=== PATIENT | female | born 1940 | race Caucasian/White ===

== ENCOUNTER 2016-06-01 11:55 | Inpatient (IN) | payer MEDICARE, OTHER ==
[2016-06-01] VITALS (11 sets, daily range): BP systolic 110–173; BP diastolic 59–89; PULSE 48–87; RESP 16–20; TEMP 97.3–98.4; O2SAT 95–98
[~2016-06-01] VITALS: Ht 172.7 cm; Wt 101.9 kg
[~2016-06-01 11:55] MED LIST: ATOR40TA49 PO; CALC-137 PO; CALC.25 PO; CO Q100C9 PO; DRIS8000 PO; FLEC50TA PO; IBUP800T23 PO; LEVO.125 PO; NORV5TAB PO; RAMI10CA PO; RIVA20 PO; VITA20003 PO
[2016-06-01] MEDS ORDERED: SODIUM CHLORIDE 0.9% FLUSH 5 ML FLUSH IVF PRN (12:30)
[2016-06-01 13:07] LABS: AUTOMATED NEUTROPHIL # 3.6 TH/MM3 (1.8-7.7); BASOPHIL % 0.8 % (0.0-2.0); EOSINOPHIL # 0.1 TH/MM3 (0-0.4); EOSINOPHIL % 1.6 % (0.0-4.0); HEMO FLAGS DIFF FINAL; LYMPH % 25.7 % (9.0-44.0); LYMPHOCYTE # 1.5 TH/MM3 (1.0-4.8); MEAN CELL VOLUME 91.3 FL (80.0-100.0); MEAN CORPUSCULAR HEMOGLOBIN 31.1 PG (27.0-34.0); MEAN CORPUSCULAR HGB CONC 34.1 % (32.0-36.0); MONO % 9.6 % (0.0-8.0); NEUT % 62.3 % (16.0-70.0); PLATELET COUNT 214 TH/MM3 (150-450); RED BLOOD COUNT 4.61 MIL/MM3 (4.00-5.30); RED CELL DISTRIBUTION WIDTH 13.3 % (11.6-17.2); WHITE BLOOD COUNT 5.8 TH/MM3 (4.0-11.0)
[2016-06-01] MEDS ORDERED: CO Q100C9 PO (13:10)
[2016-06-01] MEDS ORDERED: LIPI40TA PO (13:10)
[2016-06-01] MEDS ORDERED: RAMI10CA PO (13:10)
[2016-06-01] MEDS ORDERED: CALC.25 PO (13:10)
[2016-06-01] MEDS ORDERED: LEVO-168 PO (13:10)
[2016-06-01] MEDS ORDERED: VITA100032 PO (13:10)
[2016-06-01] MEDS ORDERED: FLEC1TAB8 PO (13:10)
[2016-06-01] MEDS ORDERED: CALC600T25 PO (13:10)
[2016-06-01] MEDS ORDERED: XARE20TA PO (13:10)
--- NOTE | 2016-06-01 13:10 | RADHPO ---
EXAM DATE/TIME: 06/01/2016 12:29 [place] COMPARISON: CT PULMONARY ANGIOGRAM, December 04, 2012, 22:31. CHEST SINGLE AP, December 04, 2012, 16:31. INDICATIONS : Weak, dizzy, heart palpitations. MEDICAL HISTORY: Hypertension. Deep venous thrombosis. Gastroesophageal reflux disease. Arthritis. TB. Diabetes. SURGICAL HISTORY: Appendectomy. Tonsillectomy. Total knee replacement, left. Thyroidectomy. ENCOUNTER: Initial ACUITY: 1 day PAIN SCORE: 0/10 LOCATION: chest FINDINGS: Heart remains enlarged. Consolidative changes persist in the left base. Right lung is clear. Pulmo nary vascularity is normal. CONCLUSION: Compared to 12/04/12 there is not a lot of change. There is cardiomegaly with consolidative changes i n the left base, stable in the interval. Valeriano Morillo MD FACR on June 01, 2016 at 13:06 Board Certified Radiologist. This report was verified electronically.
[2016-06-01 13:15] LABS: CHLORIDE 105 MEQ/L (98-107); POTASSIUM 4.1 MEQ/L (3.5-5.1); SODIUM (NA) 142 MEQ/L (136-145)
[2016-06-01 13:19] LABS: ANION GAP 11 MEQ/L (5-15); BICARBONATE 26.1 MEQ/L (21.0-32.0); BLOOD UREA NITROGEN 18 MG/DL (7-18)
[2016-06-01 13:21] LABS: APTT (PATIENT) 36.2 SEC (24.3-30.1); INTERNATIONAL NORMALIZED RATIO 1.1 RATIO; PROTHROMBIN TIME - PATIENT 12.3 SEC (9.8-11.6)
[2016-06-01 13:22] LABS: ALT (GPT) 24 U/L (10-53); AST (GOT) 14 U/L (15-37); GLOMERULAR FILTRATION RATE 44 ML/MIN (>89)
[2016-06-01 13:23] LABS: TOTAL BILIRUBIN ADULT 0.5 MG/DL (0.2-1.0)
[2016-06-01 13:25] LABS: ALKALINE PHOSPHATASE 185 U/L (45-117)
[2016-06-01 13:26] LABS: CREATINE KINASE 45 U/L (26-192)
--- NOTE | 2016-06-01 14:58 | PD ---
HPI Chief Complaint: General Weakness Time Seen by Provider: 12:48 Travel History International Travel<30 days: No Contact w/Intl Traveler<30days: No Traveled to known affect area: No History of Present Illness HPI 76-year-old female with history of sick sinus syndrome currently being followed by Dr. Gusman and on flecainide, diabetic, DVT and PE on Xarelto, presents to the ER today because she states that she has had a few days history of general weakness, lightheadedness, and feels like she is not quite right. She denies any chest pains, shortness of breath, fevers, vomiting, diarrhea, or any other symptoms. She states that her biomedical equipment technician had talked about possible need of pacers in the past but is currently trying flecainide on her. There has not been recent changes in dosing. Modifying Factors: None Associated Signs & Symptoms: General weakness, lightheadedness Risk Factors: Elderly, sick sinus syndrome history, slow heart rate PFSH Past Medical History Hx Anticoagulant Therapy: Yes (XARELTO) Arthritis: Yes Asthma: No Blood Disorders: No Heart Rhythm Problems: No Cardiovascular Problems: Yes (HTN; SICK SINUS SYNDROME) High Cholesterol: No Congestive Heart Failure: No COPD: No Cerebrovascular Accident: No Diabetes: Yes Patient Takes Glucophage: No Diminished Hearing: No Deep Vein Thrombosis: Yes (2002) Endocrine: Yes Gastrointestinal Disorders: No GERD: Yes Genitourinary: Yes (PT STATED USE OF 60% of kidneys) Headaches: No Hepatitis: No Hiatal Hernia: No Hypertension: Yes Immune Disorder: No Kidney Stones: No Musculoskeletal: Yes Neurologic: No Psychiatric: No Reproductive: No Respiratory: No Migraines: No Myocardial Infarction: No Renal Failure: No Seizures: No Sleep Apnea: No Thyroid Disease: Yes PNEUMOCCOCAL Vaccine (Year): 1 ?: Not Menopausal: Yes Para: 5 Past Surgical History Abdominal Surgery: No Appendectomy: Yes Cardiac Surgery: No Cholecystectomy: No Ear Surgery: No Endocrine Surgery: Yes (THYROIDECTOMY) Eye Surgery: No Genitourinary Surgery: Yes Gynecologic Surgery: Yes (CYST REMOVED) Joint Replacement: Yes (LEFT KNEE) Neurologic Surgery: No Oral Surgery: No Thoracic Surgery: No Tonsillectomy: Yes ( A CHILD) Social History Alcohol Use: Yes (1 GLASS OF WINE DAILY) Tobacco Use: No Substance Use: No Allergies-Medications (Allergen,Severity, Reaction): Coded Allergies: No Known Allergies (Verified , 06/01/16) Reported Meds & Prescriptions Reported Meds & Active Scripts Active Reported Vitamin D (Cholecalciferol) 1,000 Unit Cap 1 Tab PO DAILY Flecainide (Flecainide Acetate) 50 Mg Tab 50 Mg PO BID Co Q 10 (Coenzyme Q10 (Ubidecarenone)) 100 Mg Cap 1 Tab PO DAILY NEB Calcium (Calcium Carbonate) 600 Mg Tab 1 Tab PO BID Rocaltrol (Calcitriol) 0.25 Mcg Cap 0.25 Mcg PO DAILY Ramipril 10 Mg Cap 10 Mg PO DAILY Levothyroxine (Levothyroxine Sodium) 112 Mcg Tab 112 Mcg PO DAILY Xarelto (Rivaroxaban) 20 Mg Tab 20 Mg PO DAILY Lipitor (Atorvastatin Calcium) 40 Mg Tab 40 Mg PO HS Review of Systems Except as stated in HPI: all other systems reviewed are Neg Physical Exam Narrative GENERAL: Well-nourished, well-developed elderly white female patient in no acute distress. Awake and oriented 3. SKIN: Warm and dry. HEAD: Normocephalic. EYES: No scleral icterus. No injection or drainage. NECK: Supple, trachea midline. CARDIOVASCULAR: Slow and regular rhythm without murmurs, gallops, or rubs. RESPIRATORY: Breath sounds equal bilaterally. No accessory muscle use. GASTROINTESTINAL: Abdomen soft, non-tender, nondistended. MUSCULOSKELETAL: No cyanosis, or edema. BACK: Nontender without obvious deformity. No CVA tenderness. Data Data Last Documented VS Vital Signs Date Time Temp Pulse Resp B/P Pulse Ox O2 Delivery O2 Flow Rate FiO2 06/01/16 14:39 50 18 169/75 98 Room Air 06/01/16 12:00 97.3 Orders Complete Blood Count With Diff (06/01/16 12:24) Comprehensive Metabolic Panel (06/01/16 12:24) Magnesium (Mg) (06/01/16 12:24) Ckmb (Isoenzyme) Profile (06/01/16 12:24) Troponin I (06/01/16 12:24) Act Partial Throm Time (Ptt) (06/01/16 12:24) Prothrombin Time / Inr (Pt) (06/01/16 12:24) Chest, Single Ap (06/01/16 12:24) Ecg Monitoring (06/01/16 12:24) Iv Access Insert/Monitor (06/01/16 12:24) Oximetry (06/01/16 12:24) Sodium Chloride 0.9% Flush (Ns Flush) (06/01/16 12:30) Electrocardiogram (06/01/16 12:10) Labs Laboratory Tests Test 06/01/16 12:50 White Blood Count 5.8 TH/MM3 Red Blood Count 4.61 MIL/MM3 Hemoglobin 14.3 GM/DL Hematocrit 42.0 % Mean Corpuscular Volume 91.3 FL Mean Corpuscular Hemoglobin 31.1 PG Mean Corpuscular Hemoglobin 34.1 % Concent Red Cell Distribution Width 13.3 % Platelet Count 214 TH/MM3 Mean Platelet Volume 9.5 FL Neutrophils (%) (Auto) 62.3 % Lymphocytes (%) (Auto) 25.7 % Monocytes (%) (Auto) 9.6 % Eosinophils (%) (Auto) 1.6 % Basophils (%) (Auto) 0.8 % Neutrophils # (Auto) 3.6 TH/MM3 Lymphocytes # (Auto) 1.5 TH/MM3 Monocytes # (Auto) 0.6 TH/MM3 Eosinophils # (Auto) 0.1 TH/MM3 Basophils # (Auto) 0.0 TH/MM3 CBC Comment DIFF FINAL Differential Comment Prothrombin Time 12.3 SEC Prothromb Time International 1.1 RATIO Ratio Activated Partial 36.2 SEC Thromboplast Time Sodium Level 142 MEQ/L Potassium Level 4.1 MEQ/L Chloride Level 105 MEQ/L Carbon Dioxide Level 26.1 MEQ/L Anion Gap 11 MEQ/L Blood Urea Nitrogen 18 MG/DL Creatinine 1.20 MG/DL Estimat Glomerular Filtration 44 ML/MIN Rate Random Glucose 117 MG/DL Calcium Level 8.8 MG/DL Magnesium Level 2.0 MG/DL Total Bilirubin 0.5 MG/DL Aspartate Amino Transf 14 U/L (AST/SGOT) Alanine Aminotransferase 24 U/L (ALT/SGPT) Alkaline Phosphatase 185 U/L Total Creatine Kinase 45 U/L Troponin I LESS THAN 0.02 NG/ML Total Protein 6.4 GM/DL Albumin 3.2 GM/DL [facility] Medical Decision Making Medical Screen Exam Complete: Yes Emergency Medical Condition: Yes Medical Record Reviewed: Yes Interpretation(s) Sinus bradycardia at a rate of 47 bpm with a first-degree AV block and right bundle branch block. No signs of acute ST-T changes. Laboratory Tests Test 06/01/16 12:50 Monocytes (%) (Auto) 9.6 % (0.0-8.0) Prothrombin Time 12.3 SEC (9.8-11.6) Activated Partial 36.2 SEC Thromboplast Time (24.3-30.1) Creatinine 1.20 MG/DL (0.50-1.00) Estimat Glomerular Filtration 44 ML/MIN (>89) Rate Random Glucose 117 MG/DL (74-106) Aspartate Amino Transf 14 U/L (15-37) (AST/SGOT) Alkaline Phosphatase 185 U/L (45-117) Troponin I LESS THAN 0.02 NG/ML (0.02-0.05) Albumin 3.2 GM/DL (3.4-5.0) Differential Diagnosis Lightheadedness/general weaknessdehydration versus metabolic issues versus dysrhythmias Narrative Course Lab work did not indicate significant metabolic issues or cardiac enzyme elevations. EKG shows bradycardia in the 40s. At this point, case is discussed with Dr. Carlton was covering for patient's biomedical equipment technician, Dr. Ruibo and he would like the patient to be admitted to the main hospital for possible need of pacemaker. Case was then discussed with Dr. Kee for admission. Diagnosis Primary Impression: BRADYCARDIA, UNSPECIFIED Admitting Information Admitting Physician Requests: Admit Kelly Arias MD Jun 01, 2016 14:58
--- NOTE | 2016-06-01 16:05 | HHI.HP ---
cc: Lakeisha Butler MD [facility]ician Lakeisha Butler MD Admission Diagnosis symptomatic bradycardia Diagnoses: (1) Symptomatic bradycardia Diagnosis: Principal (2) HTN (hypertension) Diagnosis: Principal Chief Complaint: weak, dizzy Travel History International Travel<30 Days: No Contact w/Intl Traveler <30 Da: No Traveled to Known Affected Are: No History of Present Illness 76-year-old female with history of sick sinus syndrome, heart malrotation, hypertension, hyperlipidemia, DVTs and PEs on Xarelto, diet controlled diabetes, thyroid disease, and GERD presents with presyncopal symptoms. at bedside. The patient states that at 10 AM today she became extremely weak and dizzy and "woozy". She states she almost passed out but denies any actual syncope. She states she tested her blood sugar thinking it was low but was normal at 120. Sitting down made her feel better. Weakness was constant. She is somewhat improved now, admits to currently feeling chilled. Patient states she had a headache but it is gone now. She admits to chronic dyspnea on exertion but denies any shortness of breath or chest pain with symptoms today. Denies any visual changes. Denies any fevers or recent cold symptoms. Denies any abdominal pain, nausea, vomiting, or diarrhea. Denies any urinary symptoms. Review of Systems Constitutional: DENIES: Fever Eyes: DENIES: Blurred vision Ears, nose, mouth, throat: DENIES: Throat pain, Ear Pain Respiratory: DENIES: Cough, Shortness of breath Cardiovascular: COMPLAINS OF: Dyspnea on Exertion (chronic), DENIES: Chest pain Gastrointestinal: DENIES: Abdominal pain, Diarrhea, Nausea, Vomiting Genitourinary: DENIES: Urinary frequency, Dysuria Musculoskeletal: COMPLAINS OF: Neck pain (chronic ) Integumentary: DENIES: Rash Neurologic: COMPLAINS OF: Headache (now resolved), DENIES: Localized weakness ENT: chronic nasal congestion Past Family Social History Past Medical History Sick sinus syndrome Malrotation of the heart Hypertension Hyperlipidemia Diet-controlled diabetes Thyroid disease GERD Arthritis h/o DVTs and PEs, currently on Xarelto. EMR indicates patient had extensive bilateral pulmonary emboli in Nov 2012 with DVTs in the right leg at that time. She additionally had DVT in the right leg in Dec. Patient denies CKD although indicated by EMR, but admits to ELYSIA at one time from calcitriol which she is still taking Past Surgical History Tonsillectomy as a child Thyroidectomy Appendectomy Left knee replacement Bartholin's cyst removal Reported Medications Vitamin D (Cholecalciferol) 1,000 Unit Cap 1 Tab PO DAILY Flecainide (Flecainide Acetate) 50 Mg Tab 50 Mg PO BID Co Q 10 (Coenzyme Q10 (Ubidecarenone)) 100 Mg Cap 1 Tab PO DAILY NEB Calcium (Calcium Carbonate) 600 Mg Tab 1 Tab PO BID Rocaltrol (Calcitriol) 0.25 Mcg Cap 0.25 Mcg PO DAILY Ramipril 10 Mg Cap 10 Mg PO DAILY Levothyroxine (Levothyroxine Sodium) 112 Mcg Tab 112 Mcg PO DAILY Xarelto (Rivaroxaban) 20 Mg Tab 20 Mg PO DAILY Lipitor (Atorvastatin Calcium) 40 Mg Tab 40 Mg PO HS Allergies: Coded Allergies: No Known Allergies (Verified , 06/01/16) Family History Mother: Diabetic, multiple MIs with first one at age 75. at age 84. Father: Non-Hodgkin's lymphoma; at age 80. Sister: Non-Hodgkin's lymphoma; at age 75. Social History Drinks one glass of wine daily. Quit smoking cigarettes in 1968. Prior to this smoked 1/2 to 1 pack per day starting at age 16. Denies history of illicit drug use. Physical Exam Vital Signs Vital Signs Date Time Temp Pulse Resp B/P Pulse Ox O2 Delivery O2 Flow Rate FiO2 06/01/16 14:39 50 18 169/75 98 Room Air 06/01/16 13:24 48 18 169/73 98 Room Air 06/01/16 12:30 20 97 Room Air 06/01/16 12:00 97.3 62 16 173/81 95 Physical Exam GENERAL: This is a well-nourished, well-developed patient, in no apparent distress. SKIN: No rashes, ecchymoses or lesions. Warm and dry. HEAD: Atraumatic. Normocephalic. CARDIOVASCULAR: Bradycardic rate with regular rhythm without murmurs, gallops, or rubs. RESPIRATORY: Clear to auscultation. Breath sounds equal bilaterally. No wheezes , rales, or rhonchi. GASTROINTESTINAL: Abdomen soft, non-tender, nondistended. MUSCULOSKELETAL: Trace edema in the legs. BACK: No CVA tenderness bilaterally. NEUROLOGICAL: Awake and alert. Motor grossly within normal limits. Five out of 5 muscle strength in B/L arms and legs. Normal speech. PSYCHIATRIC: Normal mood and affect. Normal insight and judgement. Laboratory Laboratory Tests Test 06/01/16 12:50 White Blood Count 5.8 Red Blood Count 4.61 Hemoglobin 14.3 Hematocrit 42.0 Mean Corpuscular Volume 91.3 Mean Corpuscular Hemoglobin 31.1 Mean Corpuscular Hemoglobin 34.1 Concent Red Cell Distribution Width 13.3 Platelet Count 214 Mean Platelet Volume 9.5 Neutrophils (%) (Auto) 62.3 Lymphocytes (%) (Auto) 25.7 Monocytes (%) (Auto) 9.6 Eosinophils (%) (Auto) 1.6 Basophils (%) (Auto) 0.8 Neutrophils # (Auto) 3.6 Lymphocytes # (Auto) 1.5 Monocytes # (Auto) 0.6 Eosinophils # (Auto) 0.1 Basophils # (Auto) 0.0 CBC Comment DIFF FINAL Differential Comment Prothrombin Time 12.3 Prothromb Time International 1.1 Ratio Activated Partial 36.2 Thromboplast Time Sodium Level 142 Potassium Level 4.1 Chloride Level 105 Carbon Dioxide Level 26.1 Anion Gap 11 Blood Urea Nitrogen 18 Creatinine 1.20 Estimat Glomerular Filtration 44 Rate Random Glucose 117 Calcium Level 8.8 Magnesium Level 2.0 Total Bilirubin 0.5 Aspartate Amino Transf 14 (AST/SGOT) Alanine Aminotransferase 24 (ALT/SGPT) Alkaline Phosphatase 185 Total Creatine Kinase 45 Troponin I LESS THAN 0.02 Total Protein 6.4 Albumin 3.2 Result Diagram: 06/01/16 1250 06/01/16 1250 Assessment and Plan Assessment and Plan 76-year-old female with: Symptomatic bradycardia: Patient with sick sinus syndrome, presyncopal symptoms today. Heart rate 48 on exam. -ED physician spoke with Dr. Carlton, supervisor cigar processing covering for patient's supervisor cigar processing Dr. Crawford; requested admission to [facility] for pacemaker placement. -NPO after midnight (Can continue Flecainide) HTN: BP 173/81 on arrival. -Continue home Ramipril -IV hydralazine prn as directed for SBP >180 or DBP >100 HLD: Continue statin Diabetes: Glucose 117. Diet controlled currently; history of Metformin use. Patient states her last hemoglobin A1c was 5.8 approximately 4 months ago. -Bedside glucose checks -Low dose SSI. Hold SSI if patient NPO and BGL < 200. Thyroid disease: Continue home medications. CKD Stage 3: Cr 1.2, at baseline. -Monitor BMP -Avoid nephrotoxins h/o multiple DVT/PE: Currently on Xarelto, but will hold in light of impending procedure. Start patient on heparin 5000 units sq q8h. Code Status FULL CODE. Discussed Condition With Dr. Kee, patient and her Attending Statement The exam, history, and the medical decision-making described in the above note were completed with the assistance of the mid-level provider. I reviewed and agree with the findings presented. I attest that I had a [id number] encounter with the patient on the same day, and personally performed and documented my assessment and findings in the medical record. Patient seen in room hr in the 50 Transfer discussed with patient, spouse D/w er Brittaney Chan Jun 01, 2016 16:05 Colleen Kee MD Jun 01, 2016 17:01
[2016-06-01] MEDS ORDERED: NALOXONE HCL 0.4 MG/ML AMP IV PRN (16:15)
[2016-06-01] MEDS ORDERED: GLUCAGON 1 MG/ML VIAL OTHER PRN (16:15)
[2016-06-01] MEDS ORDERED: SODIUM CHLORIDE 0.9% FLUSH 5 ML FLUSH FLUSH PRN (16:15)
[2016-06-01] MEDS ORDERED: DEXTROSE 50% IN WATER 50 ML VIAL(D50) IV PUSH PRN (16:15)
[2016-06-01] MEDS ORDERED: PILL SPLITTER OTHER PRN (16:30)
[2016-06-01] MEDS ORDERED: hydrALAZINE HCL 20 MG/ML VIAL IV PUSH PRN (16:45)
[2016-06-01] MEDS: HEPARIN SODIUM - SQ 10,000 UNITS/ML VIAL SQ SCH (16:53)
[2016-06-01] MEDS: INSULIN ASPART SUPPLEMENTAL SCALE SQ SCH (21:00)
[2016-06-01] MEDS ORDERED: ATORVASTATIN 40 MG TAB PO SCH (21:00)
[2016-06-01] MEDS: CALCIUM CARBONATE 1.25 GM (CA 500 MG) TAB PO SCH (21:31)
[2016-06-01] MEDS: SODIUM CHLORIDE 0.9% FLUSH 5 ML FLUSH FLUSH SCH (21:32)
[2016-06-01] MEDS: FLECAINIDE ACETATE 100 MG TAB PO SCH (21:42)
[2016-06-02] VITALS (18 sets, daily range): BP systolic 123–150; BP diastolic 65–82; PULSE 38–77; RESP 14–18; TEMP 97.5–97.9; O2SAT 94–97
[2016-06-02] MEDS: HEPARIN SODIUM - SQ 10,000 UNITS/ML VIAL SQ SCH ×2 (01:27→09:49)
[2016-06-02] MEDS ORDERED: LEVOTHYROXINE SODIUM 112 MCG TAB PO SCH (06:00)
[2016-06-02] MEDS: INSULIN ASPART SUPPLEMENTAL SCALE SQ SCH ×2 (06:09→11:00)
[2016-06-02] MEDS ORDERED: CHOLECALCIFEROL (VIT D3) 1000 UNIT TAB PO SCH (09:00)
[2016-06-02] MEDS ORDERED: RAMIPRIL 5 MG CAP PO SCH (09:00)
[2016-06-02] MEDS ORDERED: CALCITRIOL 0.25 MCG CAP PO SCH (09:00)
[2016-06-02] MEDS: SODIUM CHLORIDE 0.9% FLUSH 5 ML FLUSH FLUSH SCH (09:48)
[2016-06-02] MEDS: FLECAINIDE ACETATE 100 MG TAB PO SCH (09:49)
[2016-06-02] MEDS: CALCIUM CARBONATE 1.25 GM (CA 500 MG) TAB PO SCH (09:49)
--- NOTE | 2016-06-02 09:58 | HHI.PR ---
Subjective Remarks Follow-up symptomatically bradycardia, hypertension, diabetes. The patient has no complaints at this time. She is not lightheaded or dizzy. No chest pain or dyspnea. She states that she ambulated to the bathroom earlier today without lightheadedness. Objective Vitals Vital Signs Date Time Temp Pulse Resp B/P Pulse Ox O2 Delivery O2 Flow Rate FiO2 06/02/16 06:00 62 06/02/16 05:00 44 06/02/16 04:24 97.9 57 16 123/65 94 06/02/16 04:00 41 06/02/16 03:00 58 06/02/16 02:54 38 06/02/16 02:00 46 06/02/16 01:00 97.5 61 14 130/74 94 06/02/16 01:00 64 06/02/16 00:00 48 06/01/16 23:00 48 06/01/16 22:00 64 06/01/16 21:00 48 06/01/16 20:40 48 06/01/16 20:15 98.4 87 18 110/86 96 06/01/16 18:51 51 18 124/59 97 Room Air 06/01/16 16:14 50 18 168/89 97 Room Air 06/01/16 14:39 50 18 169/75 98 Room Air 06/01/16 13:24 48 18 169/73 98 Room Air 06/01/16 12:30 20 97 Room Air 06/01/16 12:00 97.3 62 16 173/81 95 I/O 06/01/16 06/01/16 06/01/16 06/02/16 06/02/16 06/02/16 07:00 15:00 23:00 07:00 15:00 23:00 Intake Total 240 ml Balance 240 ml Intake Oral 240 ml IV Total 0 ml # Voids 1 # Bowel Movements 0 Result Diagram: 06/01/16 1250 06/01/16 1250 Imaging Last Impressions Chest X-Ray 06/01/16 1224 Signed Impressions: Service Date/Time: Wednesday, June 01, 2016 12:29 - CONCLUSION: Compared to 12/04/12 there is not a lot of change. There is cardiomegaly with consolidative changes in the left base, stable in the interval. Valeriano Morillo MD FACR Objective Remarks General: No acute distress. Heart: Bradycardic. No murmur. Lungs: Clear to auscultation bilaterally. No wheezes, rales, or rhonchi. Breathing is nonlabored. Abdomen: Soft, nontender, nondistended. Extremities: No lower extremity edema. Psych: Alert and oriented. Urinary Catheter: No Vascular Central Line Catheter: No A/P Problem List: (1) Symptomatic bradycardia ICD Code: R00.1 Status: Acute (2) HTN (hypertension) ICD Code: I10 Status: Chronic (3) Diabetes mellitus ICD Code: E11.9 Status: Chronic (4) Hyperlipidemia ICD Code: E78.5 Status: Chronic (5) Hypothyroidism ICD Code: E03.9 Status: Chronic (6) Chronic kidney disease, stage 3 ICD Code: N18.3 Status: Chronic (7) History of pulmonary embolus (PE) ICD Code: Z86.711 Status: Chronic Assessment and Plan 1. Symptomatic bradycardia: A shunt presented with sick sinus syndrome and presyncopal symptoms. Cardiology consultation is pending. Patient was transferred to [facility] for pacemaker placement. Continue flecainide. 2. Hypertension: Continue Avapro. Hydralazine as needed. 3. Hyperlipidemia: Continue statin. 4. Diabetes mellitus type 2: Currently diet controlled. Monitor Accu-Cheks and cover with sliding scale insulin. 5. Hypothyroidism: Continue Synthroid. 6. Chronic kidney disease stage III: Monitor labs. Avoid nephrotoxins. 7. History of DVT, PE: Patient is on Xarelto chronically. Hold Xarelto in anticipation of pacemaker placement. Continue heparin. 8. CODE STATUS: Full code. Problem Qualifiers (1) Diabetes mellitus: Qualified Code: E11.22 - Type 2 diabetes mellitus with stage 3 chronic kidney disease, without long-term current use of insulin Franco Brian MD Jun 02, 2016 09:58
[2016-06-02] MEDS ORDERED: PNEUMOCOCCAL POLYVALENT INJ 25 MCG/0.5 ML SYR IM ONE (10:00)
--- NOTE | 2016-06-02 13:40 | EKG ---
Date Performed: 06/01/2016 Time Performed: 12:10:52 PTAGE: 76 years EKG: Sinus bradycardia with 1st degree A-V block Severe right axis deviation Right bundle branch block Lateral infarct - age undetermined Possible anteroseptal infarct - age undetermined Inferior T wave changes may be due to myocardial ischemia Low QRS voltages in precordial leads Abnormal ECG PREVIOUS TRACING : 12/03/2012 05.32 Compared to previous tracing, marked bradycardia is new. Castillo spect limb lead reveral with repeat EKG. DOCTOR: Jr Mckay Interpretating Date/Time 06/02/2016 13:39:24
--- NOTE | 2016-06-02 14:33 | HHI.DCPOC ---
Discharge Care Plan Diagnosis: (1) History of pulmonary embolus (PE) (2) Chronic kidney disease, stage 3 (3) Hypothyroidism (4) Hyperlipidemia (5) Diabetes mellitus (6) HTN (hypertension) (7) Symptomatic bradycardia Goals to Promote Your Health * To prevent worsening of your condition and complications * To maintain your health at the optimal level Directions to Meet Your Goals Take your medications as prescribed Follow your dietary instruction Follow activity as directed Keep your appointments as scheduled Take your immunizations and boosters as scheduled If your symptoms worsen call your PCP, if no PCP go to Urgent Care Center or Emergency Room Smoking is Dangerous to Your Health. Avoid second hand smoke Call the 24-hour hour crisis hotline for domestic abuse at Franco Brian MD Jun 02, 2016 14:33
--- NOTE | 2016-06-02 15:05 | MB ---
cc: SELENE NELSON M.D., SANDRA L. M.D. LOPEZ, MARIA I. M.D. DATE OF CONSULTATION: 06/02/2016 REASON FOR CONSULTATION: Bradycardia. HISTORY OF PRESENT ILLNESS The patient is a 76-year-old white female with history of sick sinus syndrome who presented yesterday with for a syncopal episode and found to be in significant sinus bradycardia. She was been treated for her sick sinus syndrome with flecainide which was stopped yesterday. The patient has no symptoms today and heart rate is up to 60. She he does have chronic shortness of breath due to history of pulmonary embolisms in the past but denies any other cardiac symptoms like chest pain or palpitations. PAST MEDICAL HISTORY 1. Sick sinus syndrome 2. Hypertension. 3. Hyperlipidemia 4. Diet-controlled diabetes 5. Thyroid disease 6. Gastroesophageal reflux disease 7. Arthritis 8. History of deep venous thrombosis and pulmonary embolisms. Currently on Xarelto. PAST SURGICAL HISTORY 1. Tonsillectomy 2. Thyroidectomy 3. Appendectomy 4. Left knee replacement 5. Bartholin cyst removal. ALLERGIES She has no known allergies. FAMILY HISTORY Mother at age 84 and had diabetes and multiple heart attacks father at age 80 with non-Hodgkin's lymphoma. SOCIAL HISTORY She drinks one glass of wine per day. Quit smoking in 1968. MEDICATIONS Current medications include 1. Calcitriol 0.5 mg daily. 2. Ramipril 10 mg daily, 3. Vitamin B1 1000 units daily. 4. We will thyroxin 112 mcg daily. 5. Atorvastatin 40 mg daily 6. Subcutaneous Heparin 5000 units every 8 hours 7. ALIS inhibitor. 8. Flecainide PHYSICAL EXAMINATION: IN GENERAL: The patient is in no acute distress. VITAL SIGNS: Blood pressure is 130/70 millimeters of mercury, heart rate 60 beats per minute sinus rhythm. HEAD/NECK: with no JVD or carotid bruits. Normal carotid upstrokes. LUNGS: Clear to auscultation. HEART: Normal S1-S2 without murmurs or gallops. ABDOMEN: Benign without visceromegaly or bruits. EXTREMITIES: Without edema. NEUROLOGIC: With no focal deficits. DATA: Electrocardiogram shows sinus bradycardia with first-degree AV block with a heart rate of 47 beats per minute. Right axis deviation, old lateral and anteroseptal myocardial infarctions Chest x-ray showed cardiomegaly with left base consolidation which is unchanged as compared to a chest x-ray 2013. CBC, PT and INR were within normal limits. BMP was remarkable for a glucose of 117, creatinine 1.2 and a GFR of 44. ASSESSMENT 1. A 76-year-old white female with sick sinus syndrome status post symptomatic sinus bradycardia which is already resolved after discontinuation of flecainide. Heart rate is back in the 60s. The patient is asymptomatic RECOMMENDATIONS: We will send the patient home post ambulation. She is to follow up with Dr. Nelson next week as she may need a Pacemaker in the near future. MD AQUILES Renae/ani /12:48 PM /2:47 PM MTDXin
== END 2016-06-02 15:24 | disposition home or self-care (01) | DRG 310 ==
LOC: PHED 11:55 → PHEDA 15:42 → HCIS 19:35
PROVIDERS: ADMIT Family Medicine; ATTEND Family Medicine
DX: I49.5 Sick sinus syndrome (principal); N18.3 Chronic kidney disease, stage 3 (moderate); I45.10 Unspecified right bundle-branch block; I12.9 Hypertensive chronic kidney disease with stage 1 through stage 4 chronic kidney disease, or unspecified chronic kidney disease; M19.90 Unspecified osteoarthritis, unspecified site; K21.9 Gastro-esophageal reflux disease without esophagitis; E89.0 Postprocedural hypothyroidism; I44.0 Atrioventricular block, first degree; E78.5 Hyperlipidemia, unspecified; Z79.01 Long term (current) use of anticoagulants; Z86.711 Personal history of pulmonary embolism; Z86.718 Personal history of other venous thrombosis and embolism; Z87.891 Personal history of nicotine dependence; Z96.652 Presence of left artificial knee joint
CPT/HCPCS: 71010; 80053; 82550; 82948; 83735; 84484; 85025; 85610; 85730; 93005; J1644

== ENCOUNTER → 2016-07-24 | Outpatient (CLI) | payer MEDICARE, OTHER ==
[~2016-07-24] MED LIST changes: -ATOR40TA49 PO; +AZIT500T2 PO; -CALC-137 PO; +CALC600T25 PO; +CEFU1TAB20 PO; -DRIS8000 PO; -FLEC50TA PO; +HYDR1ELX PO; +HYDR1SOL3 PO; -IBUP800T23 PO; +LEVO-168 PO; -LEVO.125 PO; +LEVO112T2 PO; +LIPI40TA PO; +MEDR4PAK PO; -NORV5TAB PO; -RIVA20 PO; +VITA100032 PO; -VITA20003 PO; +XARE20TA PO; +ZITHTAB PO
[2016-07-24 09:38] LABS: AUTOMATED NEUTROPHIL # 3.2 TH/MM3 (1.8-7.7); BASOPHIL % 0.8 % (0.0-2.0); EOSINOPHIL # 0.1 TH/MM3 (0-0.4); EOSINOPHIL % 1.8 % (0.0-4.0); HEMATOCRIT 44.1 % (35.0-46.0); HEMO FLAGS DIFF FINAL; LYMPH % 33.7 % (9.0-44.0); MEAN CELL VOLUME 90.7 FL (80.0-100.0); MEAN CORPUSCULAR HGB CONC 34.2 % (32.0-36.0); MONO % 9.4 % (0.0-8.0); NEUT % 54.3 % (16.0-70.0); PLATELET COUNT 220 TH/MM3 (150-450); RED BLOOD COUNT 4.87 MIL/MM3 (4.00-5.30); RED CELL DISTRIBUTION WIDTH 14.2 % (11.6-17.2); WHITE BLOOD COUNT 5.9 TH/MM3 (4.0-11.0)
[2016-07-24 10:04] LABS: ALKALINE PHOSPHATASE 159 U/L (45-117); ALT (GPT) 32 U/L (10-53); ANION GAP 8 MEQ/L (5-15); AST (GOT) 19 U/L (15-37); BICARBONATE 27.6 MEQ/L (21.0-32.0); BLOOD UREA NITROGEN 24 MG/DL (7-18); CHLORIDE 104 MEQ/L (98-107); GLOMERULAR FILTRATION RATE 42 ML/MIN (>89); GLUCOSE,FASTING 133 MG/DL (74-99); HDL CHOLESTEROL 60.8 MG/DL (40.0-60.0); LDL CHOLESTEROL 51 MG/DL (0-99); POTASSIUM 4.6 MEQ/L (3.5-5.1); SODIUM (NA) 140 MEQ/L (136-145); TOTAL BILIRUBIN ADULT 0.6 MG/DL (0.2-1.0)
[2016-07-24 16:06] LABS: HEMOGLOBIN A1b 1.7 %; HEMOGLOBIN Ao 84.5 %; HEMOGLOBIN LA1C 2.2 %; HEMOGLOBIN P3 4.1 %
== END ==
LOC: PLAB 07:05
PROVIDERS: ATTEND Family Medicine
DX: I12.9 Hypertensive chronic kidney disease with stage 1 through stage 4 chronic kidney disease, or unspecified chronic kidney disease (principal); N18.3 Chronic kidney disease, stage 3 (moderate); E11.22 Type 2 diabetes mellitus with diabetic chronic kidney disease; E78.5 Hyperlipidemia, unspecified; E03.9 Hypothyroidism, unspecified
CPT/HCPCS: 36415; 80053; 80061; 83036; 84443; 85025

== ENCOUNTER 2016-08-04 06:11 | Emergency (ER) | payer MEDICARE, OTHER ==
[~2016-08-04] VITALS: Ht 172.7 cm; Wt 100.0 kg
[~2016-08-04 06:11] MED LIST changes: -AZIT500T2 PO; -CEFU1TAB20 PO; -HYDR1ELX PO; -HYDR1SOL3 PO; -LEVO112T2 PO; -MEDR4PAK PO; -ZITHTAB PO
[2016-08-04 06:17] VITALS: BP 142/75; PULSE 68; RESP 18; TEMP 98.1; O2SAT 94
[2016-08-04] MEDS ORDERED: LEVO112T2 PO (06:26)
--- NOTE | 2016-08-04 06:52 | PD ---
HPI Chief Complaint: Cold / Flu Symptoms Time Seen by Provider: 06:41 Travel History International Travel<30 days: No Contact w/Intl Traveler<30days: No Traveled to known affect area: No History of Present Illness HPI 76 year old female presents to the emergency department by private transportation the care of her spouse for complaint of sore throat, hoarseness, and chest congestion. Patient has history of sick sinus syndrome, HTN, hypothyroidism and diabetes. Patient is prescribed Xarelto. Patient has not checked to see if she is had fever. Patient has had cough and congestion but no phlegm production. Patient does not report chest pain or shortness of breath. Patient rates her throat pain as 10 over 10 in intensity with swallowing. No sinus pressure or drainage, no earache, no neck pain, no nausea , no vomiting, no abdominal pain, no flank pain, no dysuria, no joint pain or swelling. Patient has used Aditi-[place] with minimal relief. PFSH Past Medical History Narrative Medical sick sinus syndrome, DVT, hypertension, diabetes, hypothyroidism, appendectomy and orthopedic surgery; no tobacco use; nursing notes reviewed Hx Anticoagulant Therapy: Yes (XARELTO) Arthritis: Yes Asthma: No Blood Disorders: No Heart Rhythm Problems: No Cardiovascular Problems: Yes (HTN; SICK SINUS SYNDROME) High Cholesterol: No Congestive Heart Failure: No COPD: No Cerebrovascular Accident: No Diabetes: Yes Patient Takes Glucophage: No Diminished Hearing: No Deep Vein Thrombosis: Yes (2002) Endocrine: Yes Gastrointestinal Disorders: No GERD: Yes Genitourinary: Yes (PT STATED USE OF 60% of kidneys) Headaches: No Hepatitis: No Hiatal Hernia: No Hypertension: Yes Immune Disorder: No Kidney Stones: No Musculoskeletal: Yes Neurologic: No Psychiatric: No Reproductive: No Respiratory: No Migraines: No Myocardial Infarction: No Renal Failure: No Seizures: No Sleep Apnea: No Thyroid Disease: Yes Tetanus Vaccination: Unknown Influenza Vaccination: Yes PNEUMOCCOCAL Vaccine (Year): 1 Menopausal: Yes Para: 5 Past Surgical History Abdominal Surgery: No Appendectomy: Yes Cardiac Surgery: No Cholecystectomy: No Ear Surgery: No Endocrine Surgery: Yes (THYROIDECTOMY) Eye Surgery: No Genitourinary Surgery: Yes Gynecologic Surgery: Yes (CYST REMOVED) Joint Replacement: Yes (LEFT KNEE) Neurologic Surgery: No Oral Surgery: No Thoracic Surgery: No Tonsillectomy: Yes ( A CHILD) Social History Alcohol Use: Yes (1 GLASS OF WINE DAILY) Tobacco Use: No Substance Use: No Allergies-Medications (Allergen,Severity, Reaction): Coded Allergies: No Known Allergies (Verified , 08/04/16) Reported Meds & Prescriptions Reported Meds & Active Scripts Active Reported Levothyroxine (Levothyroxine Sodium) 112 Mcg Tab 112 Mcg PO DAILY EXCEPT WED. Vitamin D (Cholecalciferol) 1,000 Unit Cap 1 Tab PO DAILY Co Q 10 (Coenzyme Q10 (Ubidecarenone)) 100 Mg Cap 1 Tab PO DAILY NEB Calcium (Calcium Carbonate) 600 Mg Tab 1 Tab PO BID Rocaltrol (Calcitriol) 0.25 Mcg Cap 0.25 Mcg PO DAILY Ramipril 10 Mg Cap 10 Mg PO DAILY Xarelto (Rivaroxaban) 20 Mg Tab 20 Mg PO DAILY Lipitor (Atorvastatin Calcium) 40 Mg Tab 40 Mg PO HS Review of Systems Except as stated in HPI: all other systems reviewed are Neg General / Constitutional: No: Fever, Chills HENT: Positive: Sore Throat, Congestion, No: Neck Stiffness, Neck Pain, Earache Cardiovascular: No: Chest Pain or Discomfort, Palpitations Respiratory: Positive: Cough, No: Shortness of Breath, Wheezing Gastrointestinal: No: Nausea, Vomiting, Abdominal Pain Genitourinary: No: Dysuria, Flank Pain Musculoskeletal: No: Myalgias, Arthralgias Skin: No Rash Neurologic: No: Weakness, Dizziness, Syncope Psychiatric: No: Anxiety Endocrine: No: Heat Intolerance Hematologic/Lymphatic: No: Easy Bruising Physical Exam Narrative GENERAL: Well-developed well-nourished female in no acute distress no respiratory distress with hoarseness. SKIN: Warm and dry. HEAD: Normocephalic. EYES: No scleral icterus. No injection or drainage. ENT: Mucous membranes moist posterior pharynx no edema no erythema no exudative change; airway is patent. Tympanic membranes no redness no dullness to loss of landmarks no perforation NECK: Supple, trachea midline. No JVD or lymphadenopathy. No meningismus no nuchal rigidity CARDIOVASCULAR: Regular rate and rhythm without murmurs, gallops, or rubs. RESPIRATORY: Breath sounds equal bilaterally. No accessory muscle use. GASTROINTESTINAL: Abdomen soft, non-tender, nondistended. MUSCULOSKELETAL: No cyanosis, or edema. Radial and dorsalis pedis pulses 2+ to palpation bilaterally. BACK: Nontender without obvious deformity. No CVA tenderness. Data Data Last Documented VS Vital Signs Date Time Temp Pulse Resp B/P Pulse Ox O2 Delivery O2 Flow Rate FiO2 08/04/16 06:29 18 94 Room Air 08/04/16 06:17 98.1 68 142/75 Orders Chest, Single Ap (08/04/16 ) ^ Saline Lock (08/04/16 06:57) Ceftriaxone Inj (Rocephin Inj) (08/04/16 07:00) Azithromycin (Zithromax) (08/04/16 07:00) Methylprednisolone So Succ Inj (Solumedr (08/04/16 07:00) Blood Culture (08/04/16 06:57) MDM Medical Decision Making Medical Screen Exam Complete: Yes Emergency Medical Condition: Yes Medical Record Reviewed: Yes Interpretation(s) Last Impressions Chest X-Ray 08/04/16 0000 Signed Impressions: Service Date/Time: Saturday, August 04, 2016 06:45 - CONCLUSION: 1. Cardiomegaly 2. Left lower lobe atelectasis versus pneumonia. Boni Garcia MD Vital Signs Date Time Temp Pulse Resp B/P Pulse Ox O2 Delivery O2 Flow Rate FiO2 08/04/16 06:29 18 94 Room Air 08/04/16 06:17 98.1 68 18 142/75 94 Differential Diagnosis Laryngitis, pharyngitis, pneumonia; no findings for peritonsillar abscess also consider retropharyngeal abscess Narrative Course cxr ordered Chest x-ray shows left lower lobe atelectasis versus infiltrate; blood culture obtained IV Rocephin administered along with IV Solu-Medrol; heart rate respiratory rate found to be in normal range no work of breathing denies any shortness of breath room air O2 saturation 95-96% although triage shows initial room air saturation 94%; also given one-time dose of hydrocodone for complaint of throat pain. Patient is on Xarelto not a candidate for nonsteroidal anti- inflammatory pain management. Patient is aware of x-ray results and desirous of being discharged to home while attempt trial of outpatient management. Diagnosis Primary Impression: Pneumonia Qualified Code: J18.1 - Pneumonia of left lower lobe due to infectious organism Additional Impression: Laryngitis, acute Referrals: Primary Care Physician 2 days Patient Instructions: General Instructions Additional Instructions: Increase fluid hydration Follow-up with primary care provider Take Tylenol/acetaminophen every 4 hours as needed for fever 100.4F or greater or for minor pain Return to the emergency department for any concerns or change in condition Take medications as currently prescribed Use [id number] Chloraseptic spray, lozenges, warm salt gargles for symptomatic relief Med/Other Pt SpecificInfo: Prescription(s) given Scripts Hydrocodone-Acetaminophen Liq (Lortab Liq)10-300 Mg/15 Ml Elix5-10 Ml PO Q6H PRN (PAIN) #60 ML Ref 0 Prov:Lorraine Aguilar MD 08/04/16 Azithromycin (Zithromax Z-Delio)250 Mg [id number] Mg PO DIRECTED #1 DSPK Ref 0 500 MG (2 tabs) day 1, then 1 tab days 2-5. Prov:Lorraine Aguilar MD 08/04/16 Methylprednisolone Dosepak (Medrol Dosepak)4 Mg Dspk4 Mg PO DIRECTED #1 DSPK Ref 0 Per Pharmacist direction Prov:Lorraine Aguilar MD 08/04/16 Disposition: 01 DISCHARGE HOME Condition: Stable Lorraine Aguilar MD Aug 04, 2016 06:52
--- NOTE | 2016-08-04 06:55 | RADHPO ---
EXAM DATE/TIME: 08/04/2016 06:45 [facility] COMPARISON: CHEST SINGLE AP, June 01, 2016, 12:29. INDICATIONS : Cough. MEDICAL HISTORY : Hypertension. Deep venous thrombosis. Gastroesophageal reflux disease. Arthritis. TB. Diabetes SURGICAL HISTORY : Appendectomy. Tonsillectomy. Total knee replacement, left. Thyroidectomy. ENCOUNTER: Initial ACUITY: 2 days PAIN SCORE: 7/10 LOCATION: Bilateral chest FINDINGS: The cardiac silhouette is enlarged in transverse diameter. There is left lower lobe atelectasis versu s pneumonia. The right lung is free of acute parenchymal opacity. No pleural effusions are identified . CONCLUSION: 1. Cardiomegaly 2. Left lower lobe atelectasis versus pneumonia. Boni Garcia MD on August 04, 2016 at 6:53 Board Certified Radiologist. This report was verified electronically.
[2016-08-04] MEDS ORDERED: cefTRIAXone INJ 1,000 MG in SODIUM CHLORIDE 0.9% INJ 100 ML IV ONE (07:00)
[2016-08-04] MEDS ORDERED: methylPREDNISolone SOD SUCC 125 MG/2 ML VIAL IV PUSH ONE (07:00)
[2016-08-04] MEDS ORDERED: AZITHROMYCIN 250 MG TAB PO ONE (07:00)
[2016-08-04] MEDS ORDERED: MEDR4PAK PO (07:05)
[2016-08-04] MEDS ORDERED: ZITHTAB PO (07:05)
[2016-08-04] MEDS ORDERED: HYDR1ELX PO (07:05)
[2016-08-04] MEDS ORDERED: ACETAMINOPHEN 325MG/HYDROcodone 7.5MG/15ML UDC PO ONE (07:15)
[2016-08-04 07:37] VITALS: PULSE 64; RESP 16; O2SAT 96
[2016-08-04] MEDS ORDERED: HYDR1SOL3 PO (10:16)
--- NOTE | 2016-08-04 10:16 | PD ---
Data Data Last Documented VS Vital Signs Date Time Temp Pulse Resp B/P Pulse Ox O2 Delivery O2 Flow Rate FiO2 08/04/16 07:37 64 16 96 Room Air 08/04/16 06:17 98.1 142/75 Orders Chest, Single Ap (08/04/16 ) ^ Saline Lock (08/04/16 06:57) Ceftriaxone Inj (Rocephin Inj) (08/04/16 07:00) Azithromycin (Zithromax) (08/04/16 07:00) Methylprednisolone So Succ Inj (Solumedr (08/04/16 07:00) Blood Culture (08/04/16 06:57) Acetamin-Hydrocod 325-7.5 Liq (Hycet 325 (08/04/16 07:15) MDM Supervised Visit with KIMBERLY: No Narrative Course Patient called back, apparently she went to get her prescriptions filled at [facility] where she needs to go for her insurance and they don't have the Lortab elixir in that form. They have the hydrocodone/Tylenol 7.5/325 and her prescription will be changed to this. Diagnosis Primary Impression: Pneumonia Qualified Code: J18.1 - Pneumonia of left lower lobe due to infectious organism Additional Impression: Laryngitis, acute Referrals: Primary Care Physician 2 days Patient Instructions: General Instructions, Acetaminophen (By mouth), Laryngitis (ED), Pneumonia (ED) Departure Forms: Tests/Procedures Additional Instruction: Increase fluid hydration Follow-up with primary care provider Take Tylenol/acetaminophen every 4 hours as needed for fever 100.4F or greater or for minor pain Return to the emergency department for any concerns or change in condition Take medications as currently prescribed Use [id number] Chloraseptic spray, lozenges, warm salt gargles for symptomatic relief Scripts Hydrocodone-Acetaminophen Liq 7.5-325 Mg/15 Ml Soln10 Ml PO Q6H PRN (PAIN) #60 ML Ref 0 Prov:Tabitha Daugherty MD 08/04/16 Azithromycin (Zithromax Z-Delio)250 Mg Evic520 Mg PO DIRECTED #1 DSPK Ref 0 500 MG (2 tabs) day 1, then 1 tab days 2-5. Prov:Lorraine Aguilar MD 08/04/16 Methylprednisolone Dosepak (Medrol Dosepak)4 Mg Dspk4 Mg PO DIRECTED #1 DSPK Ref 0 Per Pharmacist direction Prov:Lorraine Aguilar MD 08/04/16 Disposition: 01 DISCHARGE HOME Condition: Stable Tabitha Daugherty MD Aug 04, 2016 10:16
== END 2016-08-04 08:21 | disposition home or self-care (01) ==
LOC: PHED 06:11
DX: J18.1 Lobar pneumonia, unspecified organism (principal); J04.0 Acute laryngitis; I49.5 Sick sinus syndrome; I10 Essential (primary) hypertension; E11.9 Type 2 diabetes mellitus without complications; E03.9 Hypothyroidism, unspecified; G47.30 Sleep apnea, unspecified; Z79.01 Long term (current) use of anticoagulants; Z86.718 Personal history of other venous thrombosis and embolism; Z87.39 Personal history of other diseases of the musculoskeletal system and connective tissue; Z87.19 Personal history of other diseases of the digestive system; Z87.448 Personal history of other diseases of urinary system
CPT/HCPCS: 71010; 87040; 96365; 96375; 99283; J0696; J2930

== ENCOUNTER 2016-08-09 13:58 | Observation (INO) | payer MEDICARE, OTHER ==
[~2016-08-09] VITALS: Ht 172.7 cm; Wt 97.8 kg
[2016-08-09] VITALS (7 sets, daily range): BP systolic 115–136; BP diastolic 50–70; PULSE 55–67; RESP 17–18; TEMP 96.1–97.5; O2SAT 95–98
[~2016-08-09 13:58] MED LIST changes: +HYDR1SOL3 PO; -LEVO-168 PO; +LEVO112T2 PO; +MEDR4PAK PO; +ZITHTAB PO
--- NOTE | 2016-08-09 15:07 | PD ---
HPI Chief Complaint: Respiratory Symptoms Time Seen by Provider: 14:52 Travel History International Travel<30 days: No Contact w/Intl Traveler<30days: No Traveled to known affect area: No History of Present Illness HPI This 76-year-old female is complaining of cough and generalized weakness. SHe was here on Saturday and was diagnosed with pneumonia. Her chest x-ray showed an area of atelectasis versus infiltrate on the left side. She has not had any fever but she has had rattling when she coughs. She's been having some left- sided chest pain. Yesterday she is felt like she was getting better but today she is feeling very weak again. She has never had pneumonia before. She does not have a history of COPD. She did smoke for a little while but stopped in 1968. He has a history of deep vein thrombosis and pulmonary emboli. She has been on Xarelto last 5-6 years. She was prescribed Z-Delio and Medrol Dosepak on Saturday and has been taking the medication. She was also given a single dose of Rocephin on Saturday PFSH Past Medical History Hx Anticoagulant Therapy: Yes (XARELTO) Arthritis: Yes Asthma: No Blood Disorders: No Heart Rhythm Problems: No Cardiovascular Problems: Yes (HTN; SICK SINUS SYNDROME) High Cholesterol: No Congestive Heart Failure: No COPD: No Cerebrovascular Accident: No Diabetes: Yes Patient Takes Glucophage: No Diminished Hearing: No Deep Vein Thrombosis: Yes (2002) Endocrine: Yes Gastrointestinal Disorders: No GERD: Yes Genitourinary: Yes (PT STATED USE OF 60% of kidneys) Headaches: No Hepatitis: No Hiatal Hernia: No Hypertension: Yes Immune Disorder: No Kidney Stones: No Musculoskeletal: Yes Neurologic: No Psychiatric: No Reproductive: No Respiratory: No Migraines: No Myocardial Infarction: No Renal Failure: No Seizures: No Sleep Apnea: No Thyroid Disease: Yes Tetanus Vaccination: Unknown Influenza Vaccination: Yes PNEUMOCCOCAL Vaccine (Year): 1 Menopausal: Yes Para: 5 Past Surgical History Abdominal Surgery: No Appendectomy: Yes Cardiac Surgery: No Cholecystectomy: No Ear Surgery: No Endocrine Surgery: Yes (THYROIDECTOMY) Eye Surgery: No Genitourinary Surgery: Yes Gynecologic Surgery: Yes (CYST REMOVED) Joint Replacement: Yes (LEFT KNEE) Neurologic Surgery: No Oral Surgery: No Thoracic Surgery: No Tonsillectomy: Yes ( A CHILD) Social History Alcohol Use: Yes (1 GLASS OF WINE DAILY) Tobacco Use: No Substance Use: No Allergies-Medications (Allergen,Severity, Reaction): Coded Allergies: No Known Allergies (Verified , 08/09/16) Reported Meds & Prescriptions Reported Meds & Active Scripts Active Hydrocodone-Acetaminophen Liq 7.5-325 Mg/15 Ml Soln 10 Ml PO Q6H PRN Zithromax Z-Delio (Azithromycin) 250 Mg Dspk 250 Mg PO DIRECTED 500 MG (2 tabs) day 1, then 1 tab days 2-5. Medrol Dosepak (Methylprednisolone) 4 Mg Dspk 4 Mg PO DIRECTED Per Pharmacist direction Reported Levothyroxine (Levothyroxine Sodium) 112 Mcg Tab 112 Mcg PO DAILY EXCEPT WED. Vitamin D (Cholecalciferol) 1,000 Unit Cap 1 Tab PO DAILY Co Q 10 (Coenzyme Q10 (Ubidecarenone)) 100 Mg Cap 1 Tab PO DAILY NEB Calcium (Calcium Carbonate) 600 Mg Tab 1 Tab PO BID Rocaltrol (Calcitriol) 0.25 Mcg Cap 0.25 Mcg PO DAILY Ramipril 10 Mg Cap 10 Mg PO DAILY Xarelto (Rivaroxaban) 20 Mg Tab 20 Mg PO DAILY Lipitor (Atorvastatin Calcium) 40 Mg Tab 40 Mg PO HS Review of Systems General / Constitutional: No: Fever Eyes: No: Diploplia, Blurred Vision HENT: No: Headaches, Vertigo Cardiovascular: Positive: Chest Pain or Discomfort Respiratory: Positive: Cough, Shortness of Breath, Wheezing Gastrointestinal: No: Nausea, Vomiting Genitourinary: No: Urgency Musculoskeletal: No: Myalgias Skin: No Rash Neurologic: Positive: Weakness Endocrine: No: Heat Intolerance, Cold Intolerance Hematologic/Lymphatic: No: Easy Bruising Physical Exam Narrative GENERAL: Well-developed female SKIN: Focused skin assessment warm/dry. HEAD: Atraumatic. Normocephalic. EYES: Pupils equal and round. No scleral icterus. No injection or drainage. ENT: No nasal bleeding or discharge. Mucous membranes pink and moist. NECK: Trachea midline. No JVD. CARDIOVASCULAR: Regular rate and rhythm. No murmur appreciated. RESPIRATORY: No accessory muscle use. She does have coarse rhonchi bilaterally , more prominently on the left side GASTROINTESTINAL: Abdomen soft, non-tender, nondistended. Hepatic and splenic margins not palpable. MUSCULOSKELETAL: No obvious deformities. No clubbing. No cyanosis. No edema. NEUROLOGICAL: Awake and alert. No obvious cranial nerve deficits. Motor grossly within normal limits. Normal speech. PSYCHIATRIC: Appropriate mood and affect; insight and judgment normal. Data Data Last Documented VS Vital Signs Date Time Temp Pulse Resp B/P Pulse Ox O2 Delivery O2 Flow Rate FiO2 08/09/16 14:29 16 96 Room Air 08/09/16 14:18 97.5 67 122/66 Orders Electrocardiogram (08/09/16 15:02) Complete Blood Count With Diff (08/09/16 15:02) Basic Metabolic Panel (Bmp) (08/09/16 15:02) Troponin I (08/09/16 15:02) B-Type Natriuretic Peptide (08/09/16 15:02) Blood Culture (08/09/16 15:02) Urinalysis - C+S If Indicated (08/09/16 15:02) Chest, Pa & Lat (08/09/16 15:02) Albuterol-Ipratropium Neb (Duoneb Neb) (08/09/16 15:15) Labs Laboratory Tests Test 08/09/16 15:15 White Blood Count 12.7 TH/MM3 Red Blood Count 5.53 MIL/MM3 Hemoglobin 16.1 GM/DL Hematocrit 49.9 % Mean Corpuscular Volume 90.2 FL Mean Corpuscular Hemoglobin 29.1 PG Mean Corpuscular Hemoglobin 32.3 % Concent Red Cell Distribution Width 14.1 % Platelet Count 263 TH/MM3 Mean Platelet Volume 10.1 FL Neutrophils (%) (Auto) 72.3 % Lymphocytes (%) (Auto) 19.7 % Monocytes (%) (Auto) 7.2 % Eosinophils (%) (Auto) 0.5 % Basophils (%) (Auto) 0.3 % Neutrophils # (Auto) 9.2 TH/MM3 Lymphocytes # (Auto) 2.5 TH/MM3 Monocytes # (Auto) 0.9 TH/MM3 Eosinophils # (Auto) 0.1 TH/MM3 Basophils # (Auto) 0.0 TH/MM3 CBC Comment DIFF FINAL Differential Comment Sodium Level 140 MEQ/L Potassium Level 4.0 MEQ/L Chloride Level 105 MEQ/L Carbon Dioxide Level 25.1 MEQ/L Anion Gap 10 MEQ/L Blood Urea Nitrogen 40 MG/DL Creatinine 1.80 MG/DL Estimat Glomerular Filtration 27 ML/MIN Rate Random Glucose 111 MG/DL Calcium Level 8.5 MG/DL MDM Medical Decision Making Medical Screen Exam Complete: Yes Emergency Medical Condition: Yes Medical Record Reviewed: Yes Differential Diagnosis Differential includes pneumonia, COPD, CHF Narrative Course Chest x-ray today shows significant opacity at the left lung base. There is also noted to be a large hiatal hernia. Left costophrenic angle is not well seen. White count is 12,000. The patient does not feel any better after her course of Medrol and Zithromax. She has failed outpatient treatment Diagnosis Primary Impression: Pneumonia Qualified Code: J18.1 - Pneumonia of left lower lobe due to infectious organism Additional Impression: Failure of outpatient treatment Admitting Information Admitting Physician Requests: Admit Saji Leblanc MD Aug 09, 2016 15:07
[2016-08-09] MEDS ORDERED: RESP: ALBUTEROL 2.5 MG/IPRATROPIUM 0.5 MG NEB (SCH) NEB ONE (15:15)
--- NOTE | 2016-08-09 15:40 | RADHPO ---
EXAM DATE/TIME: 08/09/2016 15:14 [facility] COMPARISON: CHEST SINGLE AP, August 04, 2016, 6:45. INDICATIONS : Cough and shortness of breath; pneumonia symptoms have become worse since Saturday. MEDICAL HISTORY : Hypertension. Diabetes mellitus type II. SURGICAL HISTORY : Appendectomy. ENCOUNTER: Subsequent ACUITY: 1 week PAIN SCORE: 0/10 LOCATION: Bilateral chest FINDINGS: PA and lateral views of the chest demonstrate significant opacity in the left lung base. The current study now demonstrates a large air-filled hiatal hernia. Left costophrenic angle is not well-visualiz ed. Right lung is clear. Heart is mildly enlarged. CONCLUSION: Consolidating airspace disease left lung base. Large hiatal hernia. Mild cardiomegaly. Axel Powers MD on August 09, 2016 at 15:36 Board Certified Radiologist. This report was verified electronically.
[2016-08-09 15:45] LABS: AUTOMATED NEUTROPHIL # 9.2 TH/MM3 (1.8-7.7); BASOPHIL % 0.3 % (0.0-2.0); EOSINOPHIL # 0.1 TH/MM3 (0-0.4); EOSINOPHIL % 0.5 % (0.0-4.0); HEMATOCRIT 49.9 % (35.0-46.0); LYMPH % 19.7 % (9.0-44.0); LYMPHOCYTE # 2.5 TH/MM3 (1.0-4.8); MEAN CELL VOLUME 90.2 FL (80.0-100.0); MEAN CORPUSCULAR HEMOGLOBIN 29.1 PG (27.0-34.0); MEAN CORPUSCULAR HGB CONC 32.3 % (32.0-36.0); MONO % 7.2 % (0.0-8.0); NEUT % 72.3 % (16.0-70.0); PLATELET COUNT 263 TH/MM3 (150-450); RED BLOOD COUNT 5.53 MIL/MM3 (4.00-5.30); RED CELL DISTRIBUTION WIDTH 14.1 % (11.6-17.2); WHITE BLOOD COUNT 12.7 TH/MM3 (4.0-11.0)
[2016-08-09 15:49] LABS: BICARBONATE 25.1 MEQ/L (21.0-32.0); HEMO FLAGS DIFF FINAL
[2016-08-09] MEDS ORDERED: PIPERACIL-TAZO 3.375 GM PREMIX 50 ML IV ONE (16:00)
[2016-08-09] MEDS ORDERED: BISACODYL 10 MG SUPP RECTAL PRN (17:30)
[2016-08-09] MEDS ORDERED: RESP: ALBUTEROL 2.5 MG/IPRATROPIUM 0.5 MG NEB (PRN) INH (17:30)
[2016-08-09] MEDS ORDERED: GLUCAGON 1 MG/ML VIAL OTHER PRN (17:30)
[2016-08-09] MEDS ORDERED: DEXTROSE 50% IN WATER 50 ML VIAL(D50) IV PUSH PRN (17:30)
[2016-08-09] MEDS ORDERED: NALOXONE HCL 0.4 MG/ML AMP IV PRN (17:30)
[2016-08-09] MEDS ORDERED: ONDANSETRON HCL 4 MG/2 ML VIAL IVP PRN (17:30)
[2016-08-09] MEDS ORDERED: SODIUM CHLORIDE 0.9% FLUSH 10 ML FLUSH IV FLUSH PRN (17:30)
[2016-08-09] MEDS ORDERED: ACETAMINOPHEN 325 MG TAB PO PRN (17:30)
[2016-08-09] MEDS ORDERED: ACETAMINOPHEN 325MG/HYDROcodone 7.5MG/15ML UDC PO PRN (17:45)
--- NOTE | 2016-08-09 18:24 | HHI.HP ---
cc: Lakeisha Butler MD [facility] Service [facility] Primary Care Physician Lakeisha Butler MD Admission Diagnosis PNEUMONIA, OUT PATIENT TREATMENT FAILURE Diagnoses: (1) Pneumonia (2) Failure of outpatient treatment (3) History of pulmonary embolus (PE) (4) Chronic kidney disease, stage 3 (5) Hypothyroidism (6) Hyperlipidemia (7) Diabetes mellitus (8) HTN (hypertension) Chief Complaint: Pneumonia Travel History International Travel<30 Days: No Contact w/Intl Traveler <30 Da: No Traveled to Known Affected Are: No History of Present Illness The patient is a 76-year-old female who presented to the emergency department with complaint of cough and generalized weakness that have worsened over the last few days. She was diagnosed here in the emergency department with pneumonia on Saturday. She was discharged home with antibiotics. She has not had any improvement in her symptoms. She does feel short of breath with any activity. She reports nonproductive cough. Denies fever or chills. No chest pain. Review of Systems Constitutional: DENIES: Fever, Chills, Night Sweats Eyes: DENIES: Blurred vision, Vision loss Ears, nose, mouth, throat: DENIES: Hearing loss Respiratory: COMPLAINS OF: Cough, Shortness of breath, DENIES: Wheezing, Sputum production Cardiovascular: COMPLAINS OF: Dyspnea on Exertion, DENIES: Chest pain, Palpitations, Lower Extremity Edema Gastrointestinal: DENIES: Abdominal pain, Constipation, Diarrhea, Nausea, Vomiting Genitourinary: DENIES: Urinary frequency, Urinary incontinence, Urgency, Hematuria, Dysuria, Nocturia Musculoskeletal: DENIES: Joint pain, Muscle aches Integumentary: DENIES: Pruritus, Rash Hematologic/lymphatic: DENIES: Bruising Neurologic: DENIES: Headache Past Family Social History Past Medical History Sick sinus syndrome Malrotation of the heart Hypertension Hyperlipidemia Diabetes mellitus, diet controlled Hypothyroidism, postsurgical GERD Arthritis History of DVT, PE Past Surgical History Tonsillectomy Thyroidectomy Appendectomy Left knee replacement Bartholin's gland cyst removal Reported Medications Hydrocodone-Acetaminophen Liq 7.5-325 Mg/15 Ml Soln 10 Ml PO Q6H PRN Zithromax Z-Delio (Azithromycin) 250 Mg Dspk 250 Mg PO DIRECTED 500 MG (2 tabs) day 1, then 1 tab days 2-5. Medrol Dosepak (Methylprednisolone) 4 Mg Dspk 4 Mg PO DIRECTED Per Pharmacist direction Reported Levothyroxine (Levothyroxine Sodium) 112 Mcg Tab 112 Mcg PO DAILY EXCEPT WED. Vitamin D (Cholecalciferol) 1,000 Unit Cap 1 Tab PO DAILY Co Q 10 (Coenzyme Q10 (Ubidecarenone)) 100 Mg Cap 1 Tab PO DAILY NEB Calcium (Calcium Carbonate) 600 Mg Tab 1 Tab PO BID Rocaltrol (Calcitriol) 0.25 Mcg Cap 0.25 Mcg PO DAILY Ramipril 10 Mg Cap 10 Mg PO DAILY Xarelto (Rivaroxaban) 20 Mg Tab 20 Mg PO DAILY Lipitor (Atorvastatin Calcium) 40 Mg Tab 40 Mg PO HS Allergies: Coded Allergies: No Known Allergies (Verified , 08/09/16) Family History Her father and sister both of non-Hodgkin's lymphoma. Mother was diabetic and had heart disease. Social History Patient quit smoking more than 30 years ago. Drinks 1 glass of wine per day. Denies illicit drug use. Physical Exam Vital Signs Vital Signs Date Time Temp Pulse Resp B/P Pulse Ox O2 Delivery O2 Flow Rate FiO2 08/09/16 17:00 95 21 08/09/16 16:26 64 17 117/50 98 Room Air 08/09/16 14:29 16 96 Room Air 08/09/16 14:18 97.5 67 18 122/66 95 Physical Exam GENERAL: Elderly female in no acute distress. HEENT: Normocephalic, atraumatic. Pupils equal, round and reactive. Extraocular movements intact. No scleral icterus. No injection or drainage. Oropharynx is clear. Mucous membranes are moist. CARDIOVASCULAR: Regular rate and rhythm without murmurs, gallops, or rubs. RESPIRATORY: Bilateral or rhonchi, left greater than right. Breathing is non- labored. GASTROINTESTINAL: Abdomen soft, non-tender, nondistended. EXTREMITIES: Trace bilateral lower extremity edema. No calf tenderness. PSYCH: Alert and oriented x 3. Laboratory Laboratory Tests Test 08/09/16 15:15 White Blood Count 12.7 Red Blood Count 5.53 Hemoglobin 16.1 Hematocrit 49.9 Mean Corpuscular Volume 90.2 Mean Corpuscular Hemoglobin 29.1 Mean Corpuscular Hemoglobin 32.3 Concent Red Cell Distribution Width 14.1 Platelet Count 263 Mean Platelet Volume 10.1 Neutrophils (%) (Auto) 72.3 Lymphocytes (%) (Auto) 19.7 Monocytes (%) (Auto) 7.2 Eosinophils (%) (Auto) 0.5 Basophils (%) (Auto) 0.3 Neutrophils # (Auto) 9.2 Lymphocytes # (Auto) 2.5 Monocytes # (Auto) 0.9 Eosinophils # (Auto) 0.1 Basophils # (Auto) 0.0 CBC Comment DIFF FINAL Differential Comment Sodium Level 140 Potassium Level 4.0 Chloride Level 105 Carbon Dioxide Level 25.1 Anion Gap 10 Blood Urea Nitrogen 40 Creatinine 1.80 Estimat Glomerular Filtration 27 Rate Random Glucose 111 Calcium Level 8.5 Troponin I 0.02 B-Type Natriuretic Peptide 39 Date/Time Procedure Status Source Growth 08/09/16 15:18 Aerobic Blood Culture Received Blood Peripheral Pending 08/09/16 15:18 Anaerobic Blood Culture Received Blood Peripheral Pending Result Diagram: 08/09/16 1515 08/09/16 1515 Imaging Last Impressions Chest X-Ray 08/09/16 1502 Signed Impressions: Service Date/Time: July 15:14 - CONCLUSION: Consolidating airspace disease left lung base. Large hiatal hernia. Mild cardiomegaly. Axel Powers MD Assessment and Plan Assessment and Plan 1. Pneumonia: Failed outpatient therapy. Continue antibiotics. Supplemental oxygen as needed. Incentive spirometry. 2. History of DVT/PE: Continue Xarelto. 3. Hypertension: Continue home medications. 4. Hyperlipidemia: Continue statin. 5. Diabetes mellitus: Diet-controlled. 6. Hypothyroidism: Continue Synthroid. 7. Acute kidney injury superimposed on chronic kidney disease stage III: Monitor BUN and creatinine. Gentle IV fluid hydration. Problem Qualifiers (1) Pneumonia: Qualified Code: J18.1 - Pneumonia of left lower lobe due to infectious organism Franco Brian MD Aug 09, 2016 18:23
[2016-08-09] MEDS ORDERED: cefTRIAXone INJ 1,000 MG in SODIUM CHLORIDE 0.9% INJ 100 ML IV SCH (20:00)
[2016-08-09 20:03] LABS: BLOOD, URINE NEG (NEG); GLUCOSE,URINE NEG (NEG); KETONE, URINE NEG (NEG); NITRITE,URINE NEG (NEG)
[2016-08-09 20:11] LABS: URINE COLOR YELLOW (YELLW/STRAW)
[2016-08-09 20:12] LABS: COMMENT (UR) CULT NOT INDICATED; CULTURE IF INDICATED CULT NOT INDICATED; RBC, URINE 0-2 /hpf (0-3); SQUAMOUS EPITHELIAL CELL URINE 0-5 /hpf (0-5)
[2016-08-09] MEDS ORDERED: ATORVASTATIN 40 MG TAB PO SCH (21:00)
[2016-08-09] MEDS ORDERED: AZITHROMYCIN INJ 500 MG in SODIUM CHLOR 0.9% 250 ML INJ 250 ML IV SCH (21:00)
[2016-08-09] MEDS: INSULIN ASPART SUPPLEMENTAL SCALE SQ SCH (21:00)
[2016-08-09] MEDS: SODIUM CHLORIDE 0.9% FLUSH 10 ML FLUSH IV FLUSH SCH (21:00)
[2016-08-09] MEDS ORDERED: PIPERACIL-TAZO 3.375 GM PREMIX 50 ML IV SCH (22:00)
[2016-08-09] MEDS: SODIUM CHLOR 0.9% 1000 ML INJ 1,000 ML IV SCH (22:31)
[2016-08-10] VITALS: BP 118/72; PULSE 65; RESP 18; TEMP 96.2; O2SAT 98
[2016-08-10] MEDS: SODIUM CHLOR 0.9% 1000 ML INJ 1,000 ML IV SCH (03:35)
[2016-08-10 04:00] VITALS: BP 127/73; PULSE 60; RESP 18; TEMP 96.1; O2SAT 98
[2016-08-10] MEDS: INSULIN ASPART SUPPLEMENTAL SCALE SQ SCH (05:46)
[2016-08-10] MEDS ORDERED: LEVOTHYROXINE SODIUM 112 MCG TAB PO SCH (06:00)
[2016-08-10 07:53] VITALS: O2SAT 95
[2016-08-10 08:06] LABS: AUTOMATED NEUTROPHIL # 4.7 TH/MM3 (1.8-7.7); BASOPHIL # 0.1 TH/MM3 (0-0.2); BASOPHIL % 0.9 % (0.0-2.0); EOSINOPHIL # 0.2 TH/MM3 (0-0.4); EOSINOPHIL % 2.2 % (0.0-4.0); HEMATOCRIT 43.3 % (35.0-46.0); HEMO FLAGS DIFF FINAL; LYMPH % 36.5 % (9.0-44.0); LYMPHOCYTE # 3.3 TH/MM3 (1.0-4.8); MEAN CELL VOLUME 91.7 FL (80.0-100.0); MEAN CORPUSCULAR HEMOGLOBIN 30.1 PG (27.0-34.0); MEAN CORPUSCULAR HGB CONC 32.8 % (32.0-36.0); MONO % 8.3 % (0.0-8.0); NEUT % 52.1 % (16.0-70.0); PLATELET COUNT 213 TH/MM3 (150-450); RED BLOOD COUNT 4.72 MIL/MM3 (4.00-5.30); WHITE BLOOD COUNT 9.1 TH/MM3 (4.0-11.0)
[2016-08-10 08:08] LABS: POTASSIUM 3.9 MEQ/L (3.5-5.1)
[2016-08-10 08:14] LABS: BICARBONATE 26.7 MEQ/L (21.0-32.0)
[2016-08-10 08:36] VITALS: BP 124/67; PULSE 49; RESP 15; TEMP 96.2; O2SAT 97
[2016-08-10] MEDS: SODIUM CHLORIDE 0.9% FLUSH 10 ML FLUSH IV FLUSH SCH (08:38)
[2016-08-10 08:54] LABS: CALCIUM-PROTEIN CORRECTED 7.7 MG/DL (8.5-10.1)
[2016-08-10] MEDS ORDERED: RIVAROXABAN 20 MG TAB PO SCH (09:00)
[2016-08-10] MEDS ORDERED: CALCITRIOL 0.25 MCG CAP PO SCH (09:00)
[2016-08-10] MEDS ORDERED: CEFU1TAB20 PO (11:11)
[2016-08-10] MEDS ORDERED: AZIT500T2 PO (11:11)
--- NOTE | 2016-08-10 11:11 | HHI.DCPOC ---
Discharge Care Plan Diagnosis: (1) Failure of outpatient treatment (2) History of pulmonary embolus (PE) (3) Chronic kidney disease, stage 3 (4) HTN (hypertension) (5) Pneumonia (6) Hypothyroidism (7) Hyperlipidemia (8) Diabetes mellitus Goals to Promote Your Health * To prevent worsening of your condition and complications * To maintain your health at the optimal level Directions to Meet Your Goals Take your medications as prescribed Follow your dietary instruction Follow activity as directed Keep your appointments as scheduled Take your immunizations and boosters as scheduled If your symptoms worsen call your PCP, if no PCP go to Urgent Care Center or Emergency Room Smoking is Dangerous to Your Health. Avoid second hand smoke Call the 24-hour hour crisis hotline for domestic abuse at Franco Brian MD Aug 10, 2016 11:11
--- NOTE | 2016-08-10 11:14 | HHI.PR ---
Subjective Remarks Follow-up pneumonia. Patient states that she feels much better today. Still coughing. Reports pain in the rib cage when coughing. Denies fever, chills. She wants to go home today. Objective Vitals Vital Signs Date Time Temp Pulse Resp B/P Pulse Ox O2 Delivery O2 Flow Rate FiO2 08/10/16 08:36 96.2 49 15 124/67 97 08/10/16 07:53 95 21 08/10/16 04:00 96.1 60 18 127/73 98 08/10/16 00:00 96.2 65 18 118/72 98 08/09/16 20:30 95 08/09/16 20:15 55 08/09/16 20:00 96.4 60 18 115/62 96 08/09/16 18:15 96.1 56 18 136/70 96 08/09/16 17:00 95 21 08/09/16 16:26 64 17 117/50 98 Room Air 08/09/16 14:29 16 96 Room Air 08/09/16 14:18 97.5 67 18 122/66 95 I/O 08/09/16 08/09/16 08/09/16 08/10/16 08/10/16 08/10/16 07:00 15:00 23:00 07:00 15:00 23:00 Intake Total 980 ml Output Total 600 ml Balance 380 ml Intake IV Total 980 ml Output Urine Total 600 ml Result Diagram: 08/10/16 0725 08/10/16 0725 Imaging Last Impressions Chest X-Ray 08/09/16 1502 Signed Impressions: Service Date/Time: July 15:14 - CONCLUSION: Consolidating airspace disease left lung base. Large hiatal hernia. Mild cardiomegaly. Axel Powers MD Objective Remarks General: Elderly female in no acute distress. Heart: Regular rate and rhythm. No murmur. Lungs: Scattered rhonchi, less than yesterday. Breathing is nonlabored. Abdomen: Soft, nontender, nondistended. Extremities: No lower extremity edema. Psych: Alert and oriented. Procedures None Urinary Catheter: No Vascular Central Line Catheter: No A/P Problem List: (1) Pneumonia ICD Code: J18.9 Status: Acute (2) Failure of outpatient treatment ICD Code: Z78.9 Status: Acute (3) History of pulmonary embolus (PE) ICD Code: Z86.711 Status: Chronic (4) Chronic kidney disease, stage 3 ICD Code: N18.3 Status: Chronic (5) Hypothyroidism ICD Code: E03.9 Status: Chronic (6) Hyperlipidemia ICD Code: E78.5 Status: Chronic (7) Diabetes mellitus ICD Code: E11.9 Status: Chronic (8) HTN (hypertension) ICD Code: I10 Status: Chronic Assessment and Plan 1. Pneumonia: Failed outpatient therapy. Continue antibiotics. Supplemental oxygen as needed. Incentive spirometry. Improve clinically. 2. History of DVT/PE: Continue Xarelto. 3. Hypertension: Continue home medications. 4. Hyperlipidemia: Continue statin. 5. Diabetes mellitus: Diet-controlled. 6. Hypothyroidism: Continue Synthroid. 7. Acute kidney injury superimposed on chronic kidney disease stage III: BUN/ creatinine are trending down. Discharge Planning Discharge home in stable condition. Follow-up with PCP. Heart healthy, diabetic diet. Activity as tolerated. Problem Qualifiers (1) Pneumonia: Qualified Code: J18.1 - Pneumonia of left lower lobe due to infectious organism Franco Brian MD Aug 10, 2016 11:14
--- NOTE | 2016-08-10 20:08 | EKG ---
Date Performed: 08/09/2016 Time Performed: 15:39:12 PTAGE: 76 years EKG: Sinus rhythm with borderline 1st degree AV block left atrial abnormality Extreme right axis deviation Poor R wave progression, cannot exclude anterior infarct Compared to prior tracing no significant change Abnorma l ECG PREVIOUS TRACING : 06/01/2016 12.10 DOCTOR: William Guerrero Interpretating Date/Time 08/10/2016 20:06:35
== END 2016-08-10 12:43 | disposition home or self-care (01) ==
LOC: PHED 13:58 → INTOOBSV 16:07 → PHEDA 16:07 → PH3A 16:43
PROVIDERS: ADMIT Family Medicine; ATTEND Family Medicine
DX: J18.1 Lobar pneumonia, unspecified organism (principal); R05 Cough; R53.1 Weakness; Z79.01 Long term (current) use of anticoagulants; I49.5 Sick sinus syndrome; E11.22 Type 2 diabetes mellitus with diabetic chronic kidney disease; K21.9 Gastro-esophageal reflux disease without esophagitis; I10 Essential (primary) hypertension; Z79.899 Other long term (current) drug therapy; Z86.711 Personal history of pulmonary embolism; E78.5 Hyperlipidemia, unspecified; Z86.718 Personal history of other venous thrombosis and embolism; E89.0 Postprocedural hypothyroidism; K44.9 Diaphragmatic hernia without obstruction or gangrene; I51.7 Cardiomegaly
CPT/HCPCS: 71020; 80048; 81001; 82948; 83880; 84155; 84484; 85025; 87040; 87449; 87804; 93005; 94150; 94664; 96374; 99284; G0378; J0456; J0696; J2543; J7030; J7050

== ENCOUNTER → 2016-08-27 | Outpatient (CLI) | payer MEDICARE, OTHER ==
[~2016-08-27] MED LIST changes: +AZIT500T2 PO; +CEFU1TAB20 PO; -MEDR4PAK PO; -ZITHTAB PO
[2016-08-27 12:59] LABS: AUTOMATED NEUTROPHIL # 2.8 TH/MM3 (1.8-7.7); BASOPHIL # 0.1 TH/MM3 (0-0.2); BASOPHIL % 1.2 % (0.0-2.0); EOSINOPHIL # 0.2 TH/MM3 (0-0.4); EOSINOPHIL % 3.1 % (0.0-4.0); HEMATOCRIT 45.1 % (35.0-46.0); HEMO FLAGS DIFF FINAL; LYMPH % 33.6 % (9.0-44.0); LYMPHOCYTE # 1.8 TH/MM3 (1.0-4.8); MEAN CELL VOLUME 92.5 FL (80.0-100.0); MEAN CORPUSCULAR HEMOGLOBIN 30.1 PG (27.0-34.0); MEAN CORPUSCULAR HGB CONC 32.5 % (32.0-36.0); MONO % 9.8 % (0.0-8.0); NEUT % 52.3 % (16.0-70.0); PLATELET COUNT 228 TH/MM3 (150-450); RED BLOOD COUNT 4.87 MIL/MM3 (4.00-5.30); RED CELL DISTRIBUTION WIDTH 14.8 % (11.6-17.2); WHITE BLOOD COUNT 5.4 TH/MM3 (4.0-11.0)
[2016-08-27 13:26] LABS: BICARBONATE 27.8 MEQ/L (21.0-32.0); POTASSIUM 4.4 MEQ/L (3.5-5.1)
== END ==
LOC: PLAB 10:01
PROVIDERS: ATTEND Family Medicine
DX: N28.9 Disorder of kidney and ureter, unspecified (principal); J18.1 Lobar pneumonia, unspecified organism
CPT/HCPCS: 36415; 80048; 85025

== ENCOUNTER → 2017-01-24 | Outpatient (CLI) | payer MEDICARE, OTHER ==
[~2017-01-24] MED LIST changes: -AZIT500T2 PO; -CEFU1TAB20 PO; -HYDR1SOL3 PO; +IBUP400T20 PO
[2017-01-24 13:31] LABS: AUTOMATED NEUTROPHIL # 5.3 TH/MM3 (1.8-7.7); BASOPHIL # 0.1 TH/MM3 (0-0.2); BASOPHIL % 0.6 % (0.0-2.0); EOSINOPHIL # 0.1 TH/MM3 (0-0.4); EOSINOPHIL % 1.4 % (0.0-4.0); HEMATOCRIT 45.1 % (35.0-46.0); HEMO FLAGS DIFF FINAL; LYMPH % 36.7 % (9.0-44.0); LYMPHOCYTE # 3.6 TH/MM3 (1.0-4.8); MEAN CELL VOLUME 93.3 FL (80.0-100.0); MEAN CORPUSCULAR HEMOGLOBIN 31.7 PG (27.0-34.0); MEAN CORPUSCULAR HGB CONC 33.9 % (32.0-36.0); NEUT % 53.3 % (16.0-70.0); PLATELET COUNT 250 TH/MM3 (150-450); RED BLOOD COUNT 4.83 MIL/MM3 (4.00-5.30); RED CELL DISTRIBUTION WIDTH 14.7 % (11.6-17.2); WHITE BLOOD COUNT 9.9 TH/MM3 (4.0-11.0)
[2017-01-24 13:55] LABS: ANION GAP 9 MEQ/L (5-15); AST (GOT) 20 U/L (15-37); BICARBONATE 26.2 MEQ/L (21.0-32.0); BLOOD UREA NITROGEN 29 MG/DL (7-18); CHLORIDE 102 MEQ/L (98-107); GLOMERULAR FILTRATION RATE 35 ML/MIN (>89); GLUCOSE,FASTING 93 MG/DL (74-99); POTASSIUM 3.8 MEQ/L (3.5-5.1); SODIUM (NA) 137 MEQ/L (136-145)
[2017-01-24 13:57] LABS: ALT (GPT) 29 U/L (10-53)
[2017-01-24 14:06] LABS: ALKALINE PHOSPHATASE 192 U/L (45-117); HDL CHOLESTEROL 91.2 MG/DL (40.0-60.0); LDL CHOLESTEROL 60 MG/DL (0-99); TOTAL BILIRUBIN ADULT 0.7 MG/DL (0.2-1.0)
== END ==
LOC: PLAB 08:32
PROVIDERS: ATTEND Family Medicine
DX: I12.9 Hypertensive chronic kidney disease with stage 1 through stage 4 chronic kidney disease, or unspecified chronic kidney disease (principal); N18.3 Chronic kidney disease, stage 3 (moderate); E78.5 Hyperlipidemia, unspecified; E03.9 Hypothyroidism, unspecified
CPT/HCPCS: 36415; 80053; 80061; 83970; 84443; 85025

== ENCOUNTER → 2017-03-01 | Outpatient (CLI) | payer MEDICARE, OTHER ==
[~2017-03-01] MED LIST changes: -CALC600T25 PO; +CALC600T5 PO; +IBUP1TAB5 PO; -IBUP400T20 PO
[2017-03-01 14:02] LABS: ANION GAP 10 MEQ/L (5-15); AST (GOT) 16 U/L (15-37); BICARBONATE 24.9 MEQ/L (21.0-32.0); BLOOD UREA NITROGEN 20 MG/DL (7-18); CHLORIDE 103 MEQ/L (98-107); GLOMERULAR FILTRATION RATE 41 ML/MIN (>89); GLUCOSE,FASTING 118 MG/DL (74-99); SODIUM (NA) 138 MEQ/L (136-145)
[2017-03-01 14:04] LABS: ALT (GPT) 22 U/L (10-53)
[2017-03-01 14:06] LABS: ALKALINE PHOSPHATASE 163 U/L (45-117); TOTAL BILIRUBIN ADULT 0.7 MG/DL (0.2-1.0)
== END ==
LOC: PLAB 08:22
PROVIDERS: ATTEND Family Medicine
DX: R74.8 Abnormal levels of other serum enzymes (principal); N18.3 Chronic kidney disease, stage 3 (moderate); R05 Cough; R06.02 Shortness of breath
CPT/HCPCS: 36415; 80053; 84080

== ENCOUNTER → 2017-04-03 | Outpatient (CLI) | payer MEDICARE, OTHER ==
[~2017-04-03] MED LIST changes: +D31000CA3 PO; -VITA100032 PO
[2017-04-05 17:51] LABS: A FUMIGATUS CLASS 0; A TENUIS LESS THAN 0 kU/L; A TENUIS CLASS 0; ALMOND LESS THAN 0.10 kU/L; ALMOND CLASS 0; BAHIA GRASS LESS THAN 0.10 kU/L; BAHIA GRASS CLASS 0; BERMUDA GRASS LESS THAN 0.10 kU/L; BERMUDA GRASS CLASS 0; BIRCH CLASS 0; C HERBARUM LESS THAN 0.10 kU/L; C HERBARUM CLASS 0; CASHEW CLASS 0; CAT DANDER LESS THAN 0.10 kU/L; CAT DANDER CLASS 0; COCKROACH LESS THAN 0.10 kU/L; COCKROACH CLASS 0; CODFISH CLASS 0; COMMON PIGWEED LESS THAN 0.10 kU/L; COMMON PIGWEED CLASS 0; COMMON RAGWEED 0.29 kU/L; COWS MILK CLASS 0; COWS MILK IGE LESS THAN 0.10 kU/L; D FARINAE 0.18 kU/L; D PTERONYSSINUS LESS THAN 0.10 kU/L; D PTERONYSSINUS CLASS 0; DOG DANDER LESS THAN 0.10 kU/L; DOG DANDER CLASS 0; EGG WHITE LESS THAN 0.10 kU/L; EGG WHITE CLASS 0; ELM CLASS 0; HAZELNUT LESS THAN 0.10 kU/L; HAZELNUT CLASS 0; MAPLE (BOX ELDER) LESS THAN 0.10 kU/L; MAPLE (BOX ELDER) CLASS 0; MOUNTAIN CEDAR LESS THAN 0.10 kU/L; MOUNTAIN CEDAR CLASS 0; MOUSE CLASS 0; MOUSE URINE PROTEINS LESS THAN 0.10 kU/L; NETTLE LESS THAN 0.10 kU/L; NETTLE CLASS 0; OAK WHITE LESS THAN 0.10 kU/L; OAK WHITE CLASS 0; P NOTATUM LESS THAN 0.10 kU/L; P NOTATUM CLASS 0; PEANUT LESS THAN 0.10 kU/L; PEANUT CLASS 0; PECAN TREE CLASS 0; SALMON LESS THAN 0.10 kU/L; SALMON CLASS 0; SCALLOP LESS THAN 0.10 kU/L; SCALLOP CLASS 0; SESAME SEED LESS THAN 0.10 kU/L; SESAME SEED CLASS 0; SHEEP SORREL LESS THAN 0.10 kU/L; SHEEP SORREL CLASS 0; SHRIMP LESS THAN 0.10 kU/L; SHRIMP CLASS 0; SOYBEAN LESS THAN 0.10 kU/L; SOYBEAN CLASS 0; TIMOTHY GRASS LESS THAN 0.10 kU/L; TIMOTHY GRASS CLASS 0; TUNA LESS THAN 0.10 kU/L; TUNA CLASS 0; WALNUT LESS THAN 0.10 kU/L; WALNUT CLASS 0; WHEAT LESS THAN 0.10 kU/L; WHEAT CLASS 0
== END ==
LOC: PLAB 10:28
PROVIDERS: ATTEND Family Medicine
DX: E78.5 Hyperlipidemia, unspecified (principal); L20.9 Atopic dermatitis, unspecified
CPT/HCPCS: 36415; 82785; 86003

== ENCOUNTER 2017-05-21 07:06 | Emergency (ER) | payer MEDICARE, OTHER ==
[~2017-05-21] VITALS: Ht 172.7 cm; Wt 102.0 kg
[2017-05-21 07:12] VITALS: BP 184/82; PULSE 62; RESP 16; TEMP 97.5; O2SAT 98
--- NOTE | 2017-05-21 07:33 | PD ---
HPI Chief Complaint: GI Complaint Time Seen by Provider: 07:21 Travel History International Travel<30 days: No Contact w/Intl Traveler<30days: No Traveled to known affect area: No History of Present Illness HPI Patient 77-year-old female presents emergency department with abdominal pain fairly sudden onset about midnight last night bandlike about the top of her abdomen, she states more on the right side, accompanied with nonbloody and non- melanotic stools, mild nausea without vomiting. She has never had this happen to her before, no dysuria no fevers. States the pain is cramping intermittent and gradually worsening over time PFSH Past Medical History Hx Anticoagulant Therapy: Yes (XARELTO) Arthritis: Yes Asthma: No Blood Disorders: No Heart Rhythm Problems: No Cancer: No Cardiovascular Problems: Yes High Cholesterol: No Congestive Heart Failure: No COPD: No Cerebrovascular Accident: No Diabetes: Yes Diminished Hearing: No Deep Vein Thrombosis: Yes (2002) Endocrine: Yes Gastrointestinal Disorders: No GERD: Yes Genitourinary: Yes (PT STATED USE OF 60% of kidneys) Headaches: No Hepatitis: No Hiatal Hernia: No Hypertension: Yes Immune Disorder: No Kidney Stones: No Musculoskeletal: Yes Neurologic: No Psychiatric: No Reproductive: No Respiratory: Yes Migraines: No Myocardial Infarction: No Renal Failure: No Seizures: No Sleep Apnea: No Thyroid Disease: Yes PNEUMOCCOCAL Vaccine (Year): 1 Menopausal: Yes Para: 5 Past Surgical History Abdominal Surgery: No Appendectomy: Yes Cardiac Surgery: No Cholecystectomy: No Ear Surgery: No Endocrine Surgery: Yes (THYROIDECTOMY) Eye Surgery: No Genitourinary Surgery: Yes Gynecologic Surgery: Yes (CYST REMOVED) Joint Replacement: Yes (LEFT KNEE) Neurologic Surgery: No Oral Surgery: No Thoracic Surgery: No Tonsillectomy: Yes ( A CHILD) Social History Alcohol Use: Yes (1 GLASS OF WINE DAILY) Tobacco Use: No Substance Use: No Allergies-Medications (Allergen,Severity, Reaction): Coded Allergies: No Known Allergies (Verified Allergy, Unknown, 05/21/17) Reported Meds & Prescriptions Reported Meds & Active Scripts Active Protonix (Pantoprazole Sodium) 40 Mg Tab 40 Mg PO DAILY Ultram (Tramadol HCl) 50 Mg Tab 50 Mg PO Q6H PRN Reported Vitamin D-3 (Cholecalciferol) 1,000 Unit Cap 1 Cap PO DAILY Ibuprofen 400 Mg Tab 400 Mg PO Q8H PRN Levothyroxine (Levothyroxine Sodium) 112 Mcg Tab 112 Mcg PO DAILY EXCEPT SAT. Co Q 10 (Coenzyme Q10 (Ubidecarenone)) 100 Mg Cap 1 Tab PO DAILY Calcium (Calcium Carbonate) 600 Mg Tab 1 Tab PO BID Rocaltrol (Calcitriol) 0.25 Mcg Cap 0.25 Mcg PO DAILY Ramipril 10 Mg Cap 10 Mg PO BID Xarelto (Rivaroxaban) 20 Mg Tab 20 Mg PO DAILY Lipitor (Atorvastatin Calcium) 40 Mg Tab 40 Mg PO HS Review of Systems Except as stated in HPI: all other systems reviewed are Neg Physical Exam Narrative GENERAL: Well-developed, overweight in no obvious distress. SKIN: Focused skin assessment warm/dry. HEAD: Atraumatic. Normocephalic. EYES: Pupils equal and round. No scleral icterus. No injection or drainage. ENT: No nasal bleeding or discharge. Mucous membranes pink and moist. NECK: Trachea midline. No JVD. CARDIOVASCULAR: Regular rate and rhythm. No murmur appreciated. RESPIRATORY: No accessory muscle use. Clear to auscultation. Breath sounds equal bilaterally. GASTROINTESTINAL: Abdomen soft, moderately tender in the right upper quadrant without any rebound percussive tenderness. Christopher sign is negative, nondistended. Hepatic and splenic margins not palpable. MUSCULOSKELETAL: No obvious deformities. No clubbing. No cyanosis. No edema. NEUROLOGICAL: Awake and alert. No obvious cranial nerve deficits. Motor grossly within normal limits. Normal speech. PSYCHIATRIC: Appropriate mood and affect; insight and judgment normal. Data Data Last Documented VS Vital Signs Date Time Temp Pulse Resp B/P (MAP) Pulse Ox O2 Delivery O2 Flow Rate FiO2 05/21/17 09:36 70 16 143/64 (90) 05/21/17 07:35 98 Room Air 05/21/17 07:12 97.5 Orders Orders Complete Blood Count With Diff (05/21/17 07:32) Comprehensive Metabolic Panel (05/21/17 07:32) Lipase (05/21/17 07:32) Prothrombin Time / Inr (Pt) (05/21/17 07:32) Act Partial Throm Time (Ptt) (05/21/17 07:32) Urinalysis - C+S If Indicated (05/21/17 07:32) Ct Abd/Pel W Iv Contrast(Rout) (05/21/17 07:32) Iv Access Insert/Monitor (05/21/17 07:32) Ecg Monitoring (05/21/17 07:32) Oximetry (05/21/17 07:32) Sodium Chloride 0.9% Flush (Ns Flush) (05/21/17 07:45) Ketorolac Inj (Toradol Inj) (05/21/17 07:45) Iohexol 350 Inj (Omnipaque 350 Inj) (05/21/17 08:38) Ed Discharge Order (05/21/17 09:25) Labs Laboratory Tests Test 05/21/17 08:00 White Blood Count 7.4 TH/MM3 Red Blood Count 4.80 MIL/MM3 Hemoglobin 14.7 GM/DL Hematocrit 43.9 % Mean Corpuscular Volume 91.6 FL Mean Corpuscular Hemoglobin 30.7 PG Mean Corpuscular Hemoglobin Concent 33.5 % Red Cell Distribution Width 13.2 % Platelet Count 233 TH/MM3 Mean Platelet Volume 9.6 FL Neutrophils (%) (Auto) 69.4 % Lymphocytes (%) (Auto) 19.7 % Monocytes (%) (Auto) 6.4 % Eosinophils (%) (Auto) 1.2 % Basophils (%) (Auto) 3.3 % Neutrophils # (Auto) 5.1 TH/MM3 Lymphocytes # (Auto) 1.5 TH/MM3 Monocytes # (Auto) 0.5 TH/MM3 Eosinophils # (Auto) 0.1 TH/MM3 Basophils # (Auto) 0.2 TH/MM3 CBC Comment DIFF FINAL Differential Comment Prothrombin Time 11.0 SEC Prothromb Time International Ratio 1.1 RATIO Activated Partial Thromboplast Time 33.5 SEC Urine Collection Type CLEAN CATCH Urine Color YELLOW Urine Turbidity CLEAR Urine pH 7.5 Urine Specific [place] 1.014 Urine Protein NEG mg/dL Urine Glucose (UA) NEG mg/dL Urine Ketones NEG mg/dL Urine Occult Blood NEG Urine Nitrite NEG Urine Bilirubin NEG Urine Leukocyte Esterase NEG Urine WBC 0-2 /hpf Microscopic Urinalysis Comment CULT NOT INDICATED Blood Urea Nitrogen 20 MG/DL Creatinine 1.20 MG/DL Random Glucose 144 MG/DL Total Protein 6.9 GM/DL Albumin 3.3 GM/DL Calcium Level 8.2 MG/DL Alkaline Phosphatase 184 U/L Aspartate Amino Transf (AST/SGOT) 16 U/L Alanine Aminotransferase (ALT/SGPT) 21 U/L Total Bilirubin 0.6 MG/DL Sodium Level 136 MEQ/L Potassium Level 4.1 MEQ/L Chloride Level 104 MEQ/L Carbon Dioxide Level 25.6 MEQ/L Anion Gap 6 MEQ/L Estimat Glomerular Filtration Rate 44 ML/MIN Lipase 614 U/L MDM Medical Decision Making Medical Screen Exam Complete: Yes Emergency Medical Condition: Yes Differential Diagnosis Gastritis, gastroenteritis, pancreatitis, cholecystitis, acute abdomen unlikely. Narrative Course Last 24 hours Impressions Abdomen/Pelvis CT 05/21/17 0732 Signed Impressions: Service Date/Time: Sunday, May 21, 2017 08:35 - CONCLUSION: 1. Diverticulosis without diverticulitis. 2. Moderate sized hiatal hernia, could be a source of pain. 3. Cholelithiasis. 4. Hepatic and renal low densities likely cysts. 5. Cardiomegaly. Nathan Mckenzie MD Discuss results with the patient, labs are reassuring, she is feeling better, discussed symptomatic management returned ED criteria follow-up the primary care physician. No obvious source of her pain could be identified. Discussed that she does have some gallstones but no cholecystitis that we can see at this time. Discussed follow-up with general surgeon at her discretion. She stable for discharge. Diagnosis Primary Impression: Epigastric abdominal pain Additional Impression: Hiatal hernia Referrals: Kendrick Ramos MD, Sandra Lynn MD Med/Other Pt SpecificInfo: Prescription(s) given Scripts Pantoprazole (Protonix) 40 Mg Tab 40 MG PO DAILY for Reflux, #30 TAB 0 Refills Prov: Aston Molina MD 05/21/17 Tramadol (Ultram) 50 Mg Tab 50 MG PO Q6H Y for PAIN, #12 TAB 0 Refills Prov: Aston Molina MD 05/21/17 Disposition: DISCHARGE HOME Condition: Stable Aston Molina MD May 21, 2017 07:33
[2017-05-21 07:35] VITALS: RESP 16; O2SAT 98
[2017-05-21] MEDS ORDERED: KETOROLAC TROMETHAMINE 30 MG/ML (IVP) VIAL IVP ONE (07:45)
[2017-05-21] MEDS ORDERED: SODIUM CHLORIDE 0.9% FLUSH 10 ML FLUSH IV FLUSH PRN (07:45)
[2017-05-21 08:00] VITALS: BP 140/82; PULSE 67; RESP 16
[2017-05-21 08:06] LABS: AUTOMATED NEUTROPHIL # 5.1 TH/MM3 (1.8-7.7); BASOPHIL # 0.2 TH/MM3 (0-0.2); BASOPHIL % 3.3 % (0.0-2.0); EOSINOPHIL # 0.1 TH/MM3 (0-0.4); EOSINOPHIL % 1.2 % (0.0-4.0); HEMATOCRIT 43.9 % (35.0-46.0); HEMOGLOBIN 14.7 GM/DL (11.6-15.3); LYMPH % 19.7 % (9.0-44.0); LYMPHOCYTE # 1.5 TH/MM3 (1.0-4.8); MEAN CELL VOLUME 91.6 FL (80.0-100.0); MEAN CORPUSCULAR HEMOGLOBIN 30.7 PG (27.0-34.0); MEAN CORPUSCULAR HGB CONC 33.5 % (32.0-36.0); MEAN PLATELET VOLUME 9.6 FL (7.0-11.0); MONO % 6.4 % (0.0-8.0); MONOCYTE # 0.5 TH/MM3 (0-0.9); NEUT % 69.4 % (16.0-70.0); PLATELET COUNT 233 TH/MM3 (150-450); RED CELL DISTRIBUTION WIDTH 13.2 % (11.6-17.2); WHITE BLOOD COUNT 7.4 TH/MM3 (4.0-11.0)
[2017-05-21 08:08] LABS: BILIRUBIN, URINE NEG (NEG); BLOOD, URINE NEG (NEG); GLUCOSE,URINE NEG (NEG); KETONE, URINE NEG (NEG); NITRITE,URINE NEG (NEG); PH, URINE 7.5 (5.0-8.5); URINE LEUKOCYTE ESTERASE NEG (NEG)
[2017-05-21 08:14] LABS: CHLORIDE 104 MEQ/L (98-107); SODIUM (NA) 136 MEQ/L (136-145)
[2017-05-21 08:17] LABS: CALCIUM 8.2 MG/DL (8.5-10.1); URINE COLOR YELLOW (YELLW/STRAW); WBC, URINE 0-2 /hpf (0-5)
[2017-05-21 08:18] LABS: ALBUMIN 3.3 GM/DL (3.4-5.0); BICARBONATE 25.6 MEQ/L (21.0-32.0); BLOOD UREA NITROGEN 20 MG/DL (7-18); GLUCOSE,RANDOM 144 MG/DL (74-106); INTERNATIONAL NORMALIZED RATIO 1.1 RATIO; LIPASE 614 U/L (73-393)
[2017-05-21 08:21] LABS: ALT (GPT) 21 U/L (10-53); AST (GOT) 16 U/L (15-37); GLOMERULAR FILTRATION RATE 44 ML/MIN (>89)
[2017-05-21 08:22] LABS: TOTAL BILIRUBIN ADULT 0.6 MG/DL (0.2-1.0); TOTAL PROTEIN 6.9 GM/DL (6.4-8.2)
[2017-05-21 08:24] LABS: ALKALINE PHOSPHATASE 184 U/L (45-117)
[2017-05-21] MEDS ORDERED: IOHEXOL 350 MG/ML 10 ML VIAL (for RAD DIAG) IVCONTRAST ONE (08:38)
--- NOTE | 2017-05-21 08:58 | RADRPT ---
EXAM DATE/TIME: 05/21/2017 08:35 [place] COMPARISON: No previous studies available for comparison. INDICATIONS : Upper quadrant abdominal pain since last night. IV CONTRAST: 75 cc Omnipaque 350 (iohexol) IV ORAL CONTRAST: No oral contrast ingested. RADIATION DOSE: 21.91 CTDIvol (mGy) MEDICAL HISTORY : Hypertension. Deep venous thrombosis. Gastroesophageal reflux disease.Anticoagulant therapy. Diabetes . SURGICAL HISTORY : Appendectomy. Thyroidectomy. ENCOUNTER: Initial ACUITY: 2 days PAIN SCALE: 5/10 LOCATION: upper quadrant TECHNIQUE: Volumetric scanning of the abdomen and pelvis was performed. Using automated exposure control and ad justment of the mA and/or kV according to patient size, radiation dose was kept as low as reasonably achievable to obtain optimal diagnostic quality images. DICOM format image data is available electro nically for review and comparison. FINDINGS: LOWER LUNGS: The visualized lower lungs are clear. LIVER: Homogeneous density without lesion. There is no dilation of the biliary tree. Subcentimeter hepatic low-density. Tiny calcified gallstones. SPLEEN: Normal size without lesion. PANCREAS: Within normal limits. KIDNEYS: Normal in size and shape. There is no mass, stone or hydronephrosis. Renal low-density likely cysts. ADRENAL GLANDS: Within normal limits. VASCULAR: There is no aortic aneurysm. BOWEL/MESENTERY: Diverticulosis of the sigmoid colon without diverticulitis. There is no free intraperitoneal air or fluid. ABDOMINAL WALL: Within normal limits. RETROPERITONEUM: There is no lymphadenopathy. BLADDER: No wall thickening or mass. REPRODUCTIVE: Multiple calcified leiomyomas. INGUINAL: There is no lymphadenopathy or hernia. MUSCULOSKELETAL: Degenerative changes lower thoracic and lumbar spine. CONCLUSION: 1. Diverticulosis without diverticulitis. 2. Moderate sized hiatal hernia, could be a source of pain. 3. Cholelithiasis. 4. Hepatic and renal low densities likely cysts. 5. Cardiomegaly. Nathan Mckenzie MD on May 21, 2017 at 8:52 Board Certified Radiologist. This report was verified electronically.
[2017-05-21 09:00] VITALS: RESP 16
[2017-05-21] MEDS ORDERED: PROT40TA PO (09:25)
[2017-05-21] MEDS ORDERED: TRAM50 PO (09:25)
[2017-05-21 09:36] VITALS: BP 143/64
== END 2017-05-21 09:49 | disposition home or self-care (01) ==
LOC: PHED 07:06
DX: R10.13 Epigastric pain (principal); K44.9 Diaphragmatic hernia without obstruction or gangrene; K80.20 Calculus of gallbladder without cholecystitis without obstruction; I10 Essential (primary) hypertension; E11.9 Type 2 diabetes mellitus without complications; K21.9 Gastro-esophageal reflux disease without esophagitis; Z86.718 Personal history of other venous thrombosis and embolism; Z79.899 Other long term (current) drug therapy
CPT/HCPCS: 74177; 80053; 81001; 83690; 85025; 85610; 85730; 96374; 99285; J1885; Q9967

== ENCOUNTER → 2017-09-10 | Day surgery (SDC) | payer MEDICARE, OTHER ==
[~2017-09-10] MED LIST changes: +BUPIVACAINE HCL PF 0.5% 30 ML VIAL ONE; +MEPERIDINE HCL 25 MG/ML VIAL IV ONE; +PROPOFOL 200 MG/20 ML AMP IV ONE; +PROT40TA PO; +TRAM50 PO; +TRIAMCINOLONE ACETONIDE 40 MG/ML VIAL I-ARTICULR ONE
== END | disposition home or self-care (01) ==
LOC: PHSDC 06:45
PROVIDERS: ATTEND Pain Medicine Interventional Pain Medicine
DX: M54.2 Cervicalgia (principal); M25.512 Pain in left shoulder; M25.511 Pain in right shoulder
CPT/HCPCS: 64490; 64491; 64492; 99152; J2175; J3301